=== PATIENT | male | born 1950 | race Caucasian/White ===

== ENCOUNTER → 2023-10-29 13:53 | Outpatient (REF) | payer MEDICARE, OTHER, SELFPAY | LOC: RAD 13:53 | PROVIDERS: ATTENDING PHYSICIAN Surgery Vascular Surgery; FAMILY PHYSICIAN Family Medicine | DX: I73.9 Peripheral vascular disease, unspecified (principal) | CPT/HCPCS: 93922; 93925 ==

== ENCOUNTER → 2023-11-11 07:37 | Outpatient (REF) | payer MEDICARE, OTHER, SELFPAY ==
[2023-11-11 08:35] LABS: % Basophils 0.4 % (0-2); % Eosinophils 3.7 % (0-6); % Immature Granulocytes 0.3 % (0-0.5); % Lymphocytes 30.7 % (20.5-51.1); % Monocytes 7.5 % (1.7-9.3); % Neutrophils 57.4 % (42.2-75.2); Absolute Eosinophils 0.3 10^3/uL (0-0.7); Absolute Lymphocytes 2.3 10^3/uL (1.2-3.4); Absolute Monocytes 0.6 10^3/uL (0.1-0.6); Absolute Neutrophils 4.3 10^3/uL (1.4-6.5); Hematocrit 43.4 % (39.0-52.0); Hemoglobin 14.9 g/dL (13.0-18.0); Mean Corp Hgb Conc. 34.3 g/dL (33.0-37.0); Mean Corpuscular Hgb 31.1 pg (27.0-31.0); Mean Corpuscular Volume 90.6 fL (80.0-94.0); Mean Platelet Volume 10.5 fL (7.4-10.4); Nucleated Red Blood Cells % 0 % (-); Platelet Count 212 10^3/uL (130-400); Red Blood Cell Count 4.79 10^6/uL (4.70-6.10); Red Cell Dist. Width 13.4 % (11.5-14.5); White Blood Cell Count 7.5 10^3/uL (4.8-10.8)
[2023-11-11 08:45] LABS: ALT (SGPT) 61 U/L (0-50); AST (SGOT) 60 U/L (17-59); Albumin 4.6 g/dl (3.5-5.0); Alkaline Phosphatase 54 U/L (38-126); Blood Urea Nitrogen 24 mg/dl (9-20); Calcium 9.5 mg/dl (8.4-10.2); Carbon Dioxide 26 mmol/L (22-30); Chloride 102 mmol/L (98-107); Glucose 113 mg/dl (70-99); HDL Cholesterol 86 mg/dl; LDL Cholesterol, Calculated 45 mg/dl; Potassium 4.7 mmol/L (3.5-5.1); Sodium 137 mmol/L (135-145); Total Bilirubin 0.9 mg/dl (0.2-1.3); Total Cholesterol 146 mg/dl (50-199); Total Protein 7.3 g/dl (6.3-8.2); Triglyceride 75 mg/dl (10-149); Very Low Density Lipoprotein 15 mg/dl (0-30); eGFR > 60.00
[2023-11-11 09:00] LABS: Glycohemoglobin (HgbA1c) 6.6 % (4.0-5.6)
[2023-11-11 09:15] LABS: Microalbumin, Random Urine 1.3 mg/dl (0.6-1.7); Microalbumin/creatinine Ratio 14.5 mg/g
[2023-11-11 09:46] LABS: Vitamin B12 344 pg/ml (239-931)
== END ==
LOC: REG 07:37
PROVIDERS: ATTENDING PHYSICIAN Family Medicine
DX: Z79.4 Long term (current) use of insulin (principal); I10 Essential (primary) hypertension; E78.2 Mixed hyperlipidemia; E53.8 Deficiency of other specified B group vitamins; E11.52 Type 2 diabetes mellitus with diabetic peripheral angiopathy with gangrene
CPT/HCPCS: 36415; 80053; 80061; 82043; 82570; 82607; 83036; 85025

== ENCOUNTER 2024-10-01 22:27 | Inpatient (IN) | payer MEDICARE, OTHER, SELFPAY ==
[2024-10-01] VITALS (9 sets, daily range): BP systolic 88–144; BP diastolic 50–126; BMI 26.1
[2024-10-01] MEDS: NSS 1000 IV ×2 (16:52→19:52)
[2024-10-01 17:00] LABS: % Basophils 0.2 % (0-2); % Immature Granulocytes 0.8 % (0-0.5); % Lymphocytes 4.1 % (20.5-51.1); % Monocytes 10.6 % (1.7-9.3); % Neutrophils 84.3 % (42.2-75.2); Absolute Immature Granulocytes 0.1 10^3/uL (0-0.05); Absolute Lymphocytes 0.7 10^3/uL (1.2-3.4); Absolute Monocytes 1.8 10^3/uL (0.1-0.6); Absolute Neutrophils 14.6 10^3/uL (1.4-6.5); Hematocrit 36.3 % (39.0-52.0); Hemoglobin 13.2 g/dL (13.0-18.0); Mean Corp Hgb Conc. 36.4 g/dL (33.0-37.0); Mean Corpuscular Hgb 31.7 pg (27.0-31.0); Mean Corpuscular Volume 87.1 fL (80.0-94.0); Mean Platelet Volume 10.7 fL (7.4-10.4); Nucleated Red Blood Cells % 0 % (-); Platelet Count 172 10^3/uL (130-400); Red Blood Cell Count 4.17 10^6/uL (4.70-6.10); Red Cell Dist. Width 12.5 % (11.5-14.5); White Blood Cell Count 17.3 10^3/uL (4.8-10.8)
[2024-10-01 17:13] LABS: Lactic Acid 1.6 mmol/L (0.7-2.0)
[2024-10-01 17:14] LABS: ALT (SGPT) 50 U/L (0-50); AST (SGOT) 65 U/L (17-59); Albumin 4.1 g/dl (3.5-5.0); Alkaline Phosphatase 84 U/L (38-126); Blood Urea Nitrogen 34 mg/dl (9-20); Calcium 9.3 mg/dl (8.4-10.2); Carbon Dioxide 22 mmol/L (22-30); Chloride 96 mmol/L (98-107); Glucose 203 mg/dl (70-99); Potassium 3.8 mmol/L (3.5-5.1); Sodium 131 mmol/L (135-145); Total Bilirubin 0.8 mg/dl (0.2-1.3); Total Protein 6.6 g/dl (6.3-8.2); eGFR 36.33
--- NOTE | 2024-10-01 17:17 | EDRN ---
Dr. Riddle in room w/ pt at this time.
--- NOTE | 2024-10-01 17:35 | EDRN ---
Pt was sent to ER to be evaluated for weakness, chills, and diarrhea today. BS was very high but unsure how high r/t battery . low 200's BS tien 16:00. Dr. Manzanares sent pt here to be seen. Pt has pressure sore on sole of L foot at base of great
and toe #2, dry and healing. Pt saw auto bumper straightener prior to returning from [place].
--- NOTE | 2024-10-01 18:02 | EDRN ---
Pt's spouse and now pt have asked about 3 times about eating they say. Dr. Riddle was TT'd about pt's request to eat and drink at this time.
--- NOTE | 2024-10-01 18:11 | EDRN ---
Dr. Riddle responded to TT that it is ok for pt to drink and eat and pt received a boxed lunch w/ small cup of water as well at this time.
[2024-10-01 18:14] LABS: COVID-19 Antigen Negative (Negative)
--- NOTE | 2024-10-01 19:55 | EDRN ---
Pt has not vomited since in [facility] ED room #14 and has not voided or had a BM. Pt is more awake and alert per spouse. optical technician notified pt is to be admitted as per pt.
--- NOTE | 2024-10-01 19:58 | EDRN ---
Pt states she arrives for L flank pain as bad as it was pre-stent placement w/ vomiting and explosive diarrhea prior to arrival. Pt had 102 fever last night and states she also had burning on urination w/ frequency and urgency. Pain in L flank
reported as 9/10. Pt states she was seen by urologist on Friday and place on , unknown if has gotten any due to N/V. Pt last took advil for pain at tien 11:00 am though feels she vomited it up.
--- NOTE | 2024-10-01 19:59 | ED.GENMED ---
History of Present Illness
General
Chief Complaint: Abdominal Symptoms
Source: patient and spouse
Exam Limitations: none
Time Seen by Provider: 10/01/24 17:16
History of Present Illness
History of Present Illness:
Patient had some shaking chills 2 weeks ago. Then the other day and again today. Associated with some confusion and general weakness. Also some diarrhea. No abdominal pain cough congestion or fever
Past History
Past History
ED Past Medical History: HTN, Hypercholesterolemia and NIDDM
ED Past Surgical History: Cardiac (Aortic valve replacement) and Tonsilectomy
Review of Systems
Review of Systems
All Other Systems: Not applicable
Constitutional: Reports chills; Denies weight loss or night sweats
Respiratory: Reports no symptoms
Cardiac: Reports no symptoms
Phy Exam
Physical Exam
Physical Exam:
GENERAL: Alert and oriented in no apparent distress
EYE: Orbits normal.
NECK: Supple, no significant adenopathy.
ENT: Pharynx without erythema
CARDIAC: Regular rate and rhythm without any obvious murmurs.
LUNGS: Clear breath sounds,normal
ABDOMEN: Soft, without focal tenderness or distention
NEUROLOGICAL: Alert and oriented , grossly non-focal
SKIN: Warm and dry, no rash or lesion, no discoloration, skin intact.
MUSCULOSKELETAL: No edema,no deformity.Good color
PSYCH: Normal and appropriate interaction.
Course
Orders/Labs/Results
Orders:
Orders
10/01/24 16:45
IV Insert/Care/Rem.- Treatment PRN
10/01/24 16:47
Complete Blood Count/With Diff Urgent
Comprehensive Metabolic Panel Urgent
Lactic Acid Q4H
Comment: ON ICE, CANCEL 2ND ORDER IF FIRST LACTIC ACID LEVEL <2
Blood Culture Q20M
DEVAN Source: Blood/Venous
Specimen Description:
Comment: Urgent from separate sites. If patient screens positive for possible sepsis
10/01/24 16:52
0.9% Sodium Chloride 1000 ml [Nss] 1,000 ml IV BOLUS
10/01/24 17:27
STOOL [C difficile Antigen & Toxins] Urgent
DEVAN Source: Feces/Stool
Specimen Description:
Date Specimen was Collected: 10/03/24
Time Specimen was Collected: 10:35
Stool Culture Urgent
DEVAN Source: Feces/Stool
Specimen Description:
Date Specimen was Collected: 10/03/24
Time Specimen was Collected: 10:35
CXR2 [CR Chest - 2 Views ] Urgent
Comment:
Reason For Exam: Rigors/chills
10/01/24 17:48
COVID-19 Antigen Urgent
Source: Nasal Swab
Blood Culture Q20M
DEVAN Source: Blood/Venous
Specimen Description:
Comment: Urgent from separate sites. If patient screens positive for possible sepsis
Influenza A+B Rapid Molecular Urgent
DEVAN Source: Nasal Swab
Specimen Description:
10/01/24 19:45
0.9% Sodium Chloride 1000 ml [Nss] 1,000 ml IV BOLUS
10/01/24 20:22
Aztreonam [Azactam] 2,000 mg IV NOW STA
10/01/24 20:42
Vancomycin [Vancocin] 2,000 mg 0.9% Sodium Chloride 500 ml [Nss] 500 ml IV NOW
10/01/24 21:05
Urinalysis Reflex To Culture Urgent
Date Specimen was Collected: 10/01/24
Time Specimen was Collected: 20:57
Urine Microscopic Reflex Cult Urgent
10/01/24 21:54
Admit/Transfer Patient As Directed
Co-Sign Provider:
Level of Care: Inpatient admission
Assign to:: Medical/Surgical
Physician / Group: Chin
Diagnosis: AMRIK, Leukocytosis, N/V/D
Reason for Hospitalization: AMRIK, Leukocytosis, N/V/D
Expected length of stay greater than two midnights?: Yes
ELOS- Estimated Length of Stay in days: 3
I certify the patient meets the requirements for IP care: Yes
PRN Pain Medication Management As Directed
May give lesser potent ordered pain med per pt: Yes
preference::
Protocol:: Medication orders for pain may be administered in a
manner that supports deferring to patient preference
when the pt is:
- Requesting an ordered lesser potent pain medication.
Least to most potent pain medications are defined
as: acetaminophen < NSAID < tramadol < opioids
(morphine, oxycodone, hydromorphone).
- Requesting a lesser dose of the same medication IF
ORDERED.
- Requesting a less intrusive route of administration
if both routes are prescribed by the provider (PO <
IV).
10/01/24 22:06
Code Status As Directed
Resuscitation Status: Full Code
10/01/24 23:38
Acetaminophen [Tylenol] 650 mg PO Q4HPRN PRN
10/02/24 00:20
0.9% Sodium Chloride 1000 ml [Nss] 1,000 ml IV 100 mls/hr
Aspirin Low Dose EC [Aspir Low (Enteric Coated)] 81 mg PO HS
Dextrose 50%-Water [Dextrose 50% Syringe] 12.5 grams IV [id number] PRN
Glucagon [GlucaGen] 1 mg IM PRN PRN
Heparin 5,000 units SC Q8
Ondansetron Injectable [Zofran] 4 mg IV Q6HPRN PRN
insulin glargine [Lantus Solostar U-100 Insulin] 20 units SC HS
10/02/24 00:20
Activity As Directed
Activity Level: Ambulate
With Assistance
Bedside Glucose Monitoring As Directed
Frequency: AC&HS
Additional Instructions:: Change to q6h if pt on TPN, tube feeding or not eating
Bladder Scan As Directed
Follow Bladder Retention/Intermittent Cath Algorithm?: Yes
PRN if no void in __ hours: 6
Frequency: Per Retention Algorithm
If Bladder Scan Result >: 400
then:: Straight cath
I/O [Intake/ Output] As Directed
Frequency: Per unit guidelines
Straight Cath As Directed
Frequency: Per Retention Algorithm
Additional Instructions: straight cath as needed per acute urinary retention algorithm for 24 hrs
Additional Instructions: for bladder scan greater than 400 mL
Vital Signs As Directed
Frequency: Per unit guidelines
Oxygen Therapy [O2 Therapy] [RESP] Routine
Titrate/Wean O2 to maintain O2 sat greater than (%): 94
PT Consult [Pt Eval And Treat] Routine
Activity Level: Ambulate
With Assistance
DX Deep Vein Thrombosis Video Routine
10/02/24 00:30
Nebivolol HCl [Bystolic] 10 mg PO HS
10/02/24 Breakfast
BRAT
At Your Request: Full Participation
10/02/24 06:23
Complete Blood Count/No Diff IN AM
Glycohemoglobin (HgbA1c) IN AM
10/02/24 07:30
Insulin Aspart Corrective Mod [Novolog Flexpen-Moderate Resistance] See Protocol SC AC
10/04/24 08:00
Atorvastatin [Lipitor] 20 mg PO MOWEFR
Abnormal Lab Results
10/01/24 10/01/24
16:47 21:05
WBC 17.3 H 10^3/uL
(4.8-10.8)
RBC 4.17 L 10^6/uL
(4.70-6.10)
Hct 36.3 L %
(39.0-52.0)
MCH 31.7 H pg
(27.0-31.0)
MPV 10.7 H fL
(7.4-10.4)
Abs Immat Gran (auto) 0.1 H 10^3/uL
(0-0.05)
Absolute Neuts (auto) 14.6 H 10^3/uL
(1.4-6.5)
Absolute Lymphs (auto) 0.7 L 10^3/uL
(1.2-3.4)
Absolute Monos (auto) 1.8 H 10^3/uL
(0.1-0.6)
Immature Gran % 0.8 H %
(0-0.5)
Neutrophils % 84.3 H %
(42.2-75.2)
Lymphocytes % 4.1 L %
(20.5-51.1)
Monocytes % 10.6 H %
(1.7-9.3)
Sodium 131 L mmol/L
(135-145)
Chloride 96 L mmol/L
(98-107)
BUN 34 H mg/dl
(9-20)
Creatinine 1.9 H mg/dL
(0.7-1.3)
Glucose 203 H mg/dl
(70-99)
AST 65 H U/L
(17-59)
Urine Ketones 1+ A
(Negative)
Urine Bacteria (Reflex) Few A
(Negative)
Urine Glucose 4+ A
(Negative)
Urine Albumin (Reflex) 1+ A
(Neg - Trace)
10/01/24 16:47
10/01/24 16:47
Vital Signs
Initial and Last Documented VS:
Initial Vital Signs
Temp Resp Pulse Ox
99.0 F 16 97
10/01/24 16:30 10/01/24 16:30 10/01/24 16:30
Last Documented Vital Signs
Temp Pulse Resp BP Pulse Ox
99.5 F 73 18 143/79 97
10/04/24 07:45 10/04/24 07:45 10/04/24 07:45 10/04/24 07:45 10/04/24 07:45
MDM/Problems Addressed
Differential Diagnosis Includes:
Patient describing shaking rigors intermittently. Always a concern for bacteremia. However clinically not toxic at this time. With leukocytosis renal insufficiency and symptoms patient warrants inpatient evaluation and workup
*Radiology
Radiology exam reviewed: preliminary read by ED provider (Negative) and radiology read reviewed (Negative)
*Pulse Oximetry
Patient hypoxic: no
*Critical Care Note
Total Time (30-74mins, 75-104mins- exclusive of procedures): Not Applicable
Data Reviewed
Review of Other/Old Records Reveals: Labs, Records and Testing
ED Attending Note
-
Portions of this chart may have been created with voice recognition software.� Occasional wrong word or��sound alike� substitutions may have occurred due to the inherent limitations of voice recognition software.
Discharge Plan
Departure
Patient Disposition: Admit
Date of Disposition: 10/01/24
Time of Disposition: 19:59
Presentation/result/management discussed w/ accepting MD/DO: Hospitalist
Discharge Problem:
Dehydration/renal insufficiency, Rigors/leukocytosis dehydration/renal in
Interventions
Interventions:
*General Assessment Last Done: 10/01/24 17:34
*Neglect/Abuse Screening Last Done: 10/01/24 17:35
*ED- Fall Risk Assessment Last Done: 10/01/24 17:34
*Nursing Disposition Last Done: 10/02/24 00:10
CW-Jczvnx-Zgwkehhuiv Assessment Last Done: 10/01/24 18:11
Discharge Date and Time
Discharge Date/Time: 10/02/24 00:10
--- NOTE | 2024-10-01 20:39 | EDRN ---
Pharmacy called to mix and send vancocin 2000 mg at this time.
[2024-10-01] MEDS: AZACTAM 2000 MG IV (20:47)
[2024-10-01 21:14] LABS: Urine Albumin 1+ (Neg - Trace); Urine Bilirubin Negative (Negative); Urine Character Clear (Clear); Urine Color Yellow; Urine Glucose 4+ (Negative); Urine Ketone 1+ (Negative); Urine Leukocyte Negative (Negative); Urine Nitrite Negative (Negative); Urine Occult Blood Negative (Negative); Urine Urobilinogen Negative (Neg - 1+)
[2024-10-01 21:21] LABS: Urine Squamous Cell 0-2 /LPF (Few)
[2024-10-01 21:23] LABS: Urine Bacteria Few (Negative); Urine Red Blood Cell 0-2 /HPF (0-2)
[2024-10-01] MEDS: VANCOCIN 540 MG IV (21:28)
--- NOTE | 2024-10-01 22:08 | HPS.HSE ---
Family Physician
-
Family Physician: Gabe Hanley
Chief Complaint
-
Chills, N/V/D
History of Present Illness
Patient is a 74y M with PMH significant for PAD, DM-II and hypertension who presents to ED complaining of shaking chills and N/V/D. Patient states that his symptoms started about 2 weeks ago. He was visiting family in [place] and developed
shaking chills and nausea. He thought that he may have eaten something bad - though he is not aware of anything specific. He reports no known sick contacts. Patient had no chills following that initial evening; however, he notes that he has had
poor appetite and generally not been feeling well since that time. He has chronic ambulatory dysfunction and states that he has been more weak than usual.
Friday night / Friday AM patient developed recurrent chills and N/V/D. He reports some upper abdominal discomfort that has since resolved.
He had a single, watery, brown stool earlier today.
No urinary complaints. No cough / SOB. No other focal symptoms.
At the time of my examination patient is resting comfortably and has no specific complaints. He has no current abdominal pain, nausea, etc.
Medical History
Past Medical History
Past Medical History: Reports Other
Additional Past Medical History:
Aortic Stenosis
Hypertension
DM-II with Neuropathy and Retinopathy
ASCVD / PAD
Ambulatory Dysfunction
Past Surgical History: Reports Other
Additional Past Surgical History:
PTCA
T&A
Bovine AVR
Left 1st Toe Amputation
LLE Arteriogram
Social History
Tobacco: Non-smoker
Alcohol: Occasional
Drug: None
Family History
Family History: Not pertinent
Allergies / Home Medications
Allergies reflects when Allergies were last updated in [facility].
Home Medications with original date entered in [facility]
Allergy/Medication List:
Allergies
Allergy/AdvReac Type Severity Reaction Status Date / Time
Penicillins Allergy mild rash Verified 06/27/21 09:51
from zoysn
06/23/21,Tolerated
in
past,kathleen
cephalosp
simvastatin Allergy myalgias Verified 06/26/21 16:23
Home Medications
amlodipine 5 mg tablet 5 mg PO DAILY Blood pressure 11/24/19
aspirin 81 mg tablet,delayed release 81 mg PO HS Blood clot prevention/tx 11/24/19
gabapentin 600 mg tablet 600 mg PO TID Neurological Condition 11/24/19
atorvastatin 20 mg tablet 20 mg PO MOWEFR High cholesterol 01/15/21
nebivolol 10 mg tablet 10 mg PO HS Blood pressure 01/15/21
insulin glargine 100 unit/mL (3 mL) subcutaneous pen (Lantus Solostar U-100 Insulin) 22 units SC HS ##1 06/28/21
chlorthalidone 25 mg tablet 25 mg PO DAILY 10/01/24
cyclobenzaprine 10 mg tablet 10 mg PO DAILYPRN PRN muscle spasms 10/01/24
dapagliflozin propanediol 10 mg tablet (Farxiga) 10 mg PO MOWEFR 10/01/24
ezetimibe 10 mg tablet 10 mg PO HS 10/01/24
insulin aspart U-100 100 unit/mL (3 mL) subcutaneous pen (Novolog FlexPen U-100 Insulin aspart) 8 units SC AC 10/01/24
lisinopril 40 mg tablet 40 mg PO DAILY 10/01/24
semaglutide 0.25 mg or 0.5 mg (2 mg/3 mL) subcutaneous pen injector (Ozempic) 0.25 mg SC BELLO 10/01/24
therapeutic multivitamin 1 tab PO DAILY 10/01/24
vitamin B complex 1 tab PO DAILY 10/01/24
Review of Systems
-
History Source: Patient
A 12 point ROS was completed and negative except as noted: Yes
Constitutional: Reports Fatigue and Chills; Denies Fever
EENT: Denies Sore Throat
Respiratory: Denies Cough or Trouble Breathing
Cardiac: Denies Chest Pain or Palpitations
Abdomen/GI: Reports Abdominal Pain, Nausea, Vomiting, Diarrhea and Anorexia; Denies Bloody Stools or Black Stools
: Denies Dysuria, Frequency or Flank Pain
Musculoskeletal: Denies Joint Pain or Edema
Neurological: Reports Weakness; Denies Dizzy or Headache
Psych: Denies Depression or Anxiety
Physical Exam
Vital Signs
Vital Signs
Temp Pulse Resp BP Pulse Ox
99.0 F 74 18 100/76 97
10/01/24 16:30 10/01/24 22:00 10/01/24 22:00 10/01/24 22:00 10/01/24 21:30
Physical Exam
General: Other (74y M in no distress.)
HEENT: Moist mucous membranes and PERRLA
Respiratory: Clear; No Wheezes, Rales or Rhonchi
Cardiac: S1/S2 and Regular Rhythm; No Murmur
GI: Soft, Non Tender, Non Distended and Normal Bowel Sounds
Musculoskeletal: No Clubbing, No Cyanosis, No Edema and Other (Chronic venous stasis dermatitis / skin changes.)
Neuro: AO x 3
Laboratory Results
-
10/01/24 16:47
10/01/24 16:47
Laboratory Results
Lactic Acid Cancelled 10/01/24 20:45
Total Bilirubin 0.8 mg/dl (0.2-1.3) 10/01/24 16:47
AST 65 U/L (17-59) H 10/01/24 16:47
ALT 50 U/L (0-50) 10/01/24 16:47
Alkaline Phosphatase 84 U/L (38-126) 10/01/24 16:47
Impression/Plan
-
A/P: Patient is a 74y M with PMH significant for ASCVD, s/p AVR and DM-II who presents to ED complaining of chills and N/V/D off-and-on for two weeks.
Gastroenteritis
Leukocytosis
Rigors
- Admit for further evaluation and treatment.
- Check abdominal US given N/V and upper abdominal discomfort.
- Follow-up results of stool studies.
- Observe off of further abx for now pending identification of infectious source.
- Follow temperature curve. Monitor for any new / recurrent symptoms.
- Patient has leukocytosis but no other indicators of sepsis / SIRS.
AMRIK
- SCr = 1.9 compared to baseline of 1.2.
- ? due to volume losses - though patient reports single episode of emesis and single episode of loose / watery stool.
- IVF support overnight and follow for improvement.
- Hold lisinopril acutely.
DM-II
- Stable. Continue basal : bolus insulin regimen.
- Hold Farxiga / Ozempic acutely.
- SSI coverage as needed.
- Update A1C.
Benign Hypertension
- BP is borderline / low in the ED.
- Hold antihypertensive medications acutely.
- Resume as needed as BP improves.
ASCVD / PAD
- Continue CV med regimen including ASA, statin, etc.
Chronic Ambulatory Dysfunction
- PT eval.
DVT Prophylaxis: Subcut Heparin
Code Status: Full
[2024-10-01] MEDS: TYLENOL 650 MG PO (23:42)
[2024-10-01] MEDS: FLUSH (NSS) 1 FLUSH IV (23:43)
[2024-10-02] VITALS: BP 140/94
[2024-10-02] MEDS: HEPARIN 5000 UNITS SC ×3 (00:34→15:06)
[2024-10-02] MEDS: NSS 1000 IV ×4 (00:34→22:49)
[2024-10-02] MEDS: ASPIR LOW (ENTERIC COATED) PO ×2 (00:35→01:30)
[2024-10-02 00:38] LABS: Glucose - Point of Care 227 mg/dl (70-99)
[2024-10-02 00:44] VITALS: BP 128/77; BMI 25.5
[2024-10-02] MEDS: ZOFRAN 4 MG IV (00:54)
[2024-10-02] MEDS: LANTUS 0.2 UNITS SC ×2 (00:54→21:49)
[2024-10-02] MEDS: BYSTOLIC PO (01:10)
--- NOTE | 2024-10-02 01:30 | PTCARENOTE ---
Received pt from ED at 00:30. Pt able to stand and pivot from stretcher to bed. Pt shaking, states that he feels cold. Temp 99.2F. Pt vomited and unable to take PO meds at this time. PRN zofran given. Nebivolol held per Dr. Neely's note and House
Provider, Juliet Ham, due to hypotension in the ED.
[2024-10-02 07:38] LABS: Hematocrit 32.2 % (39.0-52.0); Hemoglobin 11.7 g/dL (13.0-18.0); Mean Corp Hgb Conc. 36.3 g/dL (33.0-37.0); Mean Corpuscular Hgb 32.2 pg (27.0-31.0); Mean Corpuscular Volume 88.7 fL (80.0-94.0); Mean Platelet Volume 11.2 fL (7.4-10.4); Platelet Count 139 10^3/uL (130-400); Red Blood Cell Count 3.63 10^6/uL (4.70-6.10); Red Cell Dist. Width 12.7 % (11.5-14.5); White Blood Cell Count 12.4 10^3/uL (4.8-10.8)
[2024-10-02 07:55] VITALS: BP 95/56
--- NOTE | 2024-10-02 07:58 | W.PN.HOSP.TC ---
Today's Communication/Plan
-
See PN
Assessment / Plan
Assessment / Plan
74yo M with PMHx of DM, HLD, HTN, PAD, neuropathy sent by his doctor due to ill appearing look due to 1 week of chills and few weekls of nausea, vomiting and diarrhea. Managed for possible RML pneumonia
A/P:
#RML CAP
legionella and S.pneumonia urinary Ag
Sputum Cx
Ceftriaxone/Doxy
CT chest due to vague findings on XR
#Chils, nausea, vomiting, diarrhea
r/o c.diff
CT abd/pelvis
Zofran as needed
UA neg for UTI
check Bcx
check blood parasite and Lyme
No metrabolic acidosis on labs
#minimally elevated AST
check CPK
Hepatitis panel
CT abd
#AMRIK with mild hyponatremia
Cr baseline 0.9
possibly dehydration with nausea, vomiting and diarrhea on diuretics
hold diuretics ACEi ARB, avoid NSAIDs
hydrate
follow Cr
#DM type 2 with neuropathy
cont basal insulin reduced dose
Hold bolus until oral intake improving
Accuchecks, Insulin SS, DM diet
decrease Gabapentin
#Essential HTN
hold chlorthalidone and Faxiga
#HLD
#PAD
cont meds
DVT ppx hep
Full code
I have spent at least 58min reviewing chart, test results and providing direct patient care
Anticipated Discharge: > 48 hours
Subjective/Interval History
-
Date of Service: October 02, 2024
Objective Data
-
Labs:
Laboratory Results
10/02/24
06:23
WBC 12.4 H
Hgb 11.7 L
Hct 32.2 L
Plt Count 139
Sodium Pending
Potassium Pending
Chloride Pending
Carbon Dioxide Pending
BUN Pending
Creatinine Pending
Glucose Pending
Calcium Pending
Total Bilirubin Pending
AST Pending
ALT Pending
Alkaline Phosphatase Pending
Vital Signs:
Vital Signs
Temp Pulse Resp BP Pulse Ox
99.2 F 99 19 128/77 98
10/02/24 00:44 10/02/24 00:44 10/02/24 00:44 10/02/24 00:44 10/02/24 00:44
I&O
10/01/24 10/02/24 10/03/24
06:59 06:59 06:59
Intake Total 480 / 480
Output Total 600 / 600
Balance -120 / -120
Review of Systems
-
History Source: Patient
All other systems: Reviewed and negative
Constitutional: Reports Chills
Physical Exam
-
General: No Apparent Distress
HEENT: Normocephalic
Respiratory: Decreased Breath Sounds (R)
Cardiac: Regular Rhythm
GI: Soft, Nontender and Nondistended
Musculoskeletal: No Clubbing, No Cyanosis and No Edema
Skin: Warm
Neuro: Awake, Alert, Oriented and AO x 3
Psych: Calm
[2024-10-02 08:13] LABS: Glucose - Point of Care 185 mg/dl (70-99)
[2024-10-02 08:17] LABS: Procalcitonin 24.71 ng/ml (0.0-0.25)
[2024-10-02] MEDS: STERILE WATER FOR INJECTION 10 ML IV ×3 (08:27→21:41)
[2024-10-02] MEDS: ROCEPHIN 1000 MG IV (08:27)
[2024-10-02] MEDS: NOVOLOG FLEXPEN-MODERATE RESISTANCE 1 UNITS SC (08:27)
[2024-10-02] MEDS: VIBRAMYCIN 100 MG PO (08:28)
[2024-10-02 08:30] LABS: ALT (SGPT) 39 U/L (0-50); AST (SGOT) 38 U/L (17-59); Alkaline Phosphatase 67 U/L (38-126); Blood Urea Nitrogen 33 mg/dl (9-20); Calcium 7.9 mg/dl (8.4-10.2); Carbon Dioxide 22 mmol/L (22-30); Chloride 103 mmol/L (98-107); Direct Bilirubin 0.3 mg/dl (0.0-0.4); Estimated Creatinine Clearance 48 ml/min; Glucose 150 mg/dl (70-99); Potassium 3.4 mmol/L (3.5-5.1); Sodium 134 mmol/L (135-145); Total Bilirubin 0.7 mg/dl (0.2-1.3); Total Protein 5.3 g/dl (6.3-8.2); eGFR 44.65
--- NOTE | 2024-10-02 08:55 | PHA.VAN.IN ---
Assessment
- Assessment
Renal Function: Appears elevated from baseline
Concomitant Antimicrobials: doxycycline
Plan
- Plan
Initial / Loading Dose: 2000mg 10/01
Maintenance Regimen: prn by level
Monitorin/20 in am
Pharmacokinetics Vancomycin I
- -
Patient Age: 74
Patient Sex: Male
Vancomycin Day #: 1
Indication: Bacteremia
Requesting Provider: Dr. Gautam
Pertinent Antimicrobial Allergies:
pcns=mild rash from zosyn
Height / Weight:
Height 6 ft 3 in
Actual Weight 92.397 kg
IBW in k.5
- Vital Signs / Lab Results
Temp Pulse Resp BP Pulse Ox
99.5 F 77 18 95/56 98
10/02/24 07:55 10/02/24 07:55 10/02/24 07:55 10/02/24 07:55 10/02/24 07:55
Lab Results - Hematology
10/01/24 10/02/24
16:47 06:23
WBC 17.3 H 12.4 H
Lab Results - Chemistry
10/01/24 10/02/24
16:47 06:23
BUN 34 H 33 H
Creatinine 1.9 H 1.6 H
Estimated Creat Clear 48
Albumin 4.1 3.0 L
10/01/24 10/01/24
16:47 20:45
Lactic Acid 1.6 Cancelled
Lab Results - Urine
10/01/24
21:05
Urine Nitrite (Reflex) Negative
Leukocyte Esterase Rfl Negative
Urine WBC (Reflex) 3-5
Ur Squamous Epith Cells 0-2
Urine Bacteria (Reflex) Few A
Microbiology Results
10/01/24 16:47 Blood Culture - Preliminary
Blood/Venous Positive culture in progress
Gram Stain - Preliminary
10/01/24 17:48 Blood Culture - Preliminary
Blood/Venous Positive culture in progress
Gram Stain - Preliminary
10/01/24 17:48 Influenza Types A & B (MARIA M) - Final
Nasal Swab Negative for Influenza A & B, NAAT
Negative results must be combined with clinical observations
and patient history.
Nucleic Acid Amplification test (NAAT)performed on the
[employer] NET platform.
[2024-10-02 08:57] LABS: Creatine Phosphokinase 239 U/L (55-170)
[2024-10-02 09:04] LABS: Magnesium 1.8 mg/dl (1.6-2.3)
[2024-10-02 09:25] LABS: TSH Reflex To Free T4 0.51 uIU/ml (0.47-4.68)
[2024-10-02 09:58] LABS: Glycohemoglobin (HgbA1c) 6.4 % (4.0-5.6)
[2024-10-02] MEDS: KCL 40 MEQ PO (10:21)
[2024-10-02] MEDS: MAXIPIME 2000 MG IV ×2 (10:21→21:41)
[2024-10-02] MEDS: NEURONTIN 300 MG PO ×3 (10:21→21:41)
--- NOTE | 2024-10-02 11:10 | CON.ID ---
Consultation
-
Date/Time Consultation Requested: 10/02/2024 0849
Date/Time Consultation Performed: 10/02/2024 1048
Requesting Provider: Lotus
Performing Provider: Ted
Reason for Consultation: Bacteremia
Chief Complaint / Past History
History of Present Illness
Nav Courtney is a 74-year-old man being evaluated the request of Dr. Gautam in regards to bacteremia. History is obtained from chart review, along with patient interview. Additional history was obtained from the patient's who is at the
bedside.
The patient has a significant past medical history of aortic valvulopathy, and underwent aortic valve replacement (2019; [facility]; bovine)
He reports he was in his usual state of health until approximate 2 weeks ago when he was visiting family in [place]. At that time he recalls the development of shaking chills and some nausea after he ate dinner 1 evening. This seemed to be
self-limited, and he thereafter flew to [place] where he resides, but over the past week has driven back to the local area. Earlier this week he again developed chills, nausea and vomiting, along with abdominal discomfort. Ultimately, he was seen
by his PCP and sent on to the emergency room for further evaluation.
Workup here has revealed leukocytosis. Blood cultures obtained at admission are positive for gram-positive cocci in 4 of 4 bottles. Infectious Diseases is asked to comment on further antibiotic management.
Past History
Additional Past Medical History:
HTN
DM with neuropathy/retinopathy
HLD
PAD
Valvulopathy (aortic stenosis)
Ambulatory dysfunction
Additional Past Surgical History:
AVR (2019; [facility]; bovine)
Tonsillectomy
PTCA
Left toe amputation (2021)
Allergy History:
Penicillins Allergy (Verified 06/27/21 09:51)
mild rash from zoysn 06/23/21,Tolerated in past,kathleen cephalosp
simvastatin Allergy (Verified 06/26/21 16:23)
myalgias
Medications Reviewed: Yes
Current Antibiotics:
Vancomycin (dosing per pharmacy
Cefepime 2 g IV every 12 hours
Doxycycline
Social History
Tobacco: Non-Smoker
Alcohol: Occasional
Drug: None
Personal:
Living: With Family
Employment: Retired
Family History
Family History: Not Pertinent
Review of Systems
Vital Signs
Temp Pulse Resp BP Pulse Ox
99.5 F 77 18 95/56 98
10/02/24 07:55 10/02/24 07:55 10/02/24 07:55 10/02/24 07:55 10/02/24 07:55
Physical Exam
Physical Exam
Constitutional: No Acute Distress, Comfortable and Non-toxic
Eyes: Pupils Equal, Pupils Round, No Conjunctival Hemorrhage and Sclera Anicteric
Oral: No Thrush and No Ulcers
Cardiovascular: Regular Rate, S1/S2 and Murmur (I/); Negative S3/S4
Pulmonary: Clear; Negative Wheezes
Gastrointestinal: Soft, Non Tender and Non Distended
Genito-Urinary: Negative Frank, Suprapubic Tenderness or CVA Tenderness
Extremities: Venous Insufficiency (B/L LE's); Negative Edema or Cyanosis
Musculoskeletal: Joint Swelling and Joint Effusion
Neurological: Awake and Alert
Psychological: Calm
Lab / Diagnostic Study Results
10/02/24 06:23
10/02/24 06:23
Abs Immat Gran (auto) 0.1 10^3/uL (0-0.05) H 10/01/24 16:47
Absolute Neuts (auto) 14.6 10^3/uL (1.4-6.5) H 10/01/24 16:47
Absolute Lymphs (auto) 0.7 10^3/uL (1.2-3.4) L 10/01/24 16:47
Absolute Monos (auto) 1.8 10^3/uL (0.1-0.6) H 10/01/24 16:47
Absolute Basos (auto) 0.0 10^3/uL (0-0.2) 10/01/24 16:47
Immature Gran % 0.8 % (0-0.5) H 10/01/24 16:47
Neutrophils % 84.3 % (42.2-75.2) H 10/01/24 16:47
Lymphocytes % 4.1 % (20.5-51.1) L 10/01/24 16:47
Monocytes % 10.6 % (1.7-9.3) H 10/01/24 16:47
Eosinophils % 0.0 % (0-6) 10/01/24 16:47
Basophils % 0.2 % (0-2) 10/01/24 16:47
Lactic Acid Cancelled 10/01/24 20:45
Procalcitonin 24.71 ng/ml (0.0-0.25) H* 10/02/24 07:15
Ur Squamous Epith Cells 0-2 /LPF (Few) 10/01/24 21:05
Microbiology Results
Micro:
10/02/24 10:05 Legionella Urinary Antigen - Final
Urine Negative for Legionella pneumophila Serogroup 1 antigen.
Streptococcus pneumoniae Antigen (M - Final
Negative for Streptococcus pneumoniae antigen.
10/01/24 16:47 Blood Culture - Preliminary
Blood/Venous Positive culture in progress
Gram Stain - GPCs 2 of 2 bottles
10/01/24 17:48 Blood Culture - Preliminary
Blood/Venous Positive culture in progress
Gram Stain - GPCs 2 of 2 bottles
10/02/24 07:21 Blood Parasites Smear - Pending
Blood/Venous
10/02/24 01:18 MRSA Screen - Pending
Nose
10/01/24 17:48 Influenza Types A & B (MARIA M) - Final
Nasal Swab Negative for Influenza A & B, NAAT
Negative results must be combined with clinical observations
and patient history.
Nucleic Acid Amplification test (NAAT)performed on the
[employer] platform.
Imaging:
10/02/24 CT chest/abdomen/pelvis without contrast: Mild subsegmental atelectasis in bilateral lung bases. No focal consolidation. Multiple noncalcified gallstones are noted in the gallbladder lumen. No appreciable gallbladder wall thickening or
pericholecystic fluid. Bilateral kidneys are within normal limits. No hydronephrosis or nephrolithiasis noted. No bowel wall thickening, obstruction or inflammation noted. Urinary bladder is unremarkable. Please see full dictation for
additional detail..
Assessment / Plan
Bacteremia with gram-positive cocci (high-grade)
Leukocytosis
Fever/chills
Diarrhea
Hx AVR (2020; [facility]; bovine)
HTN
DM with neuropathy/retinopathy
HLD
PAD
Valvulopathy (aortic stenosis)
Ambulatory dysfunction
Recommendations:
Continue empiric vancomycin and cefepime.
Discontinue further doxycycline.
Repeat blood cultures x 2.
Await further ID and susceptibility data from current positive blood cultures.
Check echocardiogram (TTE)
Further recommendations as additional data is returned.
[2024-10-02 11:30] VITALS: BP 100/61
[2024-10-02 11:52] LABS: Glucose - Point of Care 201 mg/dl (70-99)
[2024-10-02] MEDS: NOVOLOG FLEXPEN-MODERATE RESISTANCE 3 UNITS SC ×2 (11:54→17:20)
[2024-10-02] MEDS: TYLENOL 650 MG PO (11:55)
--- NOTE | 2024-10-02 12:35 | PTCARENOTE ---
MD notified of critical procal level and positive blood cx in progress. Patient AAOX3, flushed, diaphoretic this AM, denies nausea/abdominal pain at this time, diet advanced to low res per MD. BP this AM 95/56 taken by MD luann aware, fluid bolus
ordered and administered by this RN - see AUG. BP 100/61 HR 82 for 1100 vitals, oral temp of 100.4F, medicated with PRN tylenol. Repeat blood cx ordered per ID. Patient assistx1 RW stand and pivot to stretcher for CT scan, states generalized
weakness. K 3.4 on AM labs, repleted with oral K per MD. Urine sample sent per MD order, outstanding stool and sputum samples noted, patient aware of both needed. Patient and at bedside updated on plan of care.
--- NOTE | 2024-10-02 13:21 | CM ---
Reviewed the chart notes and spoke with the patient and his spouse at the bedside. The patient resides with his spouse in a two story home with one step to enter. The patient reports no DME or SNF in the past, but did have VN in past. Agency
unknown. The patient confirmed his pharmacy of choice is the [facility]. CM continues to be available to patient/family and is monitoring medical plan for needs at discharge.
Plan: Discharge to home when medically stable. No anticipated needs identified at this time.
[2024-10-02 15:20] VITALS: BP 109/54
[2024-10-02 17:16] LABS: Glucose - Point of Care 235 mg/dl (70-99)
[2024-10-02] MEDS: BYSTOLIC 10 MG PO (21:41)
[2024-10-02] MEDS: ZETIA 10 MG PO (21:41)
[2024-10-02] MEDS: ASPIR LOW (ENTERIC COATED) 81 MG PO (21:41)
[2024-10-02 21:52] LABS: Glucose - Point of Care 231 mg/dl (70-99)
[2024-10-02] MEDS: HEPARIN SC (23:21)
[2024-10-02 23:31] VITALS: BP 128/70
[2024-10-03 07:50] VITALS: BP 124/65
[2024-10-03 07:55] LABS: Vancomycin Random 6.6 ug/ml
[2024-10-03 08:03] LABS: Glucose - Point of Care 137 mg/dl (70-99)
[2024-10-03 08:08] LABS: ALT (SGPT) 33 U/L (0-50); AST (SGOT) 27 U/L (17-59); Albumin 2.9 g/dl (3.5-5.0); Alkaline Phosphatase 69 U/L (38-126); Blood Urea Nitrogen 25 mg/dl (9-20); Calcium 7.8 mg/dl (8.4-10.2); Carbon Dioxide 22 mmol/L (22-30); Chloride 104 mmol/L (98-107); Estimated Creatinine Clearance 64 ml/min; Glucose 127 mg/dl (70-99); Potassium 3.6 mmol/L (3.5-5.1); Sodium 135 mmol/L (135-145); Total Bilirubin 0.7 mg/dl (0.2-1.3); Total Protein 5.1 g/dl (6.3-8.2); eGFR > 60.00
[2024-10-03 08:09] LABS: % Basophils 0.3 % (0-2); % Eosinophils 0.2 % (0-6); % Immature Granulocytes 1.8 % (0-0.5); % Lymphocytes 9.6 % (20.5-51.1); % Monocytes 9.3 % (1.7-9.3); % Neutrophils 78.8 % (42.2-75.2); Absolute Immature Granulocytes 0.2 10^3/uL (0-0.05); Absolute Lymphocytes 0.9 10^3/uL (1.2-3.4); Absolute Monocytes 0.8 10^3/uL (0.1-0.6); Absolute Neutrophils 7.1 10^3/uL (1.4-6.5); Hematocrit 31.4 % (39.0-52.0); Hemoglobin 11.2 g/dL (13.0-18.0); Mean Corp Hgb Conc. 35.7 g/dL (33.0-37.0); Mean Corpuscular Hgb 32.3 pg (27.0-31.0); Mean Corpuscular Volume 90.5 fL (80.0-94.0); Mean Platelet Volume 11.5 fL (7.4-10.4); Nucleated Red Blood Cells % 0 % (-); Platelet Count 112 10^3/uL (130-400); Red Blood Cell Count 3.47 10^6/uL (4.70-6.10); Red Cell Dist. Width 13.2 % (11.5-14.5)
[2024-10-03] MEDS: NOVOLOG FLEXPEN-MODERATE RESISTANCE SC (08:18)
--- NOTE | 2024-10-03 08:22 | PHA.VAN.FU ---
Vancomycin Assessment / Plan
- Assessment
Renal Function: SCR Decreasing (1.9-->1.2)
WBC's are: Trending Down
In the past 24 hrs, patient has been: Febrile (100.4F)
Concomitant Antimicrobials: CEFEPIME
- Assessment - Therapeutic Drug Monitoring
Random Level: 6.6
- Dosing Plan
Dosing by Level: Re-dose today (2000MG)
- Monitoring Plan
Random Level: 10/04 IN AM
- Follow Up
Pharmacy will continue to follow.
Vancomycin Follow UP
- -
Patient Age: 74
Patient Sex: Male
Vancomycin Day #: 2
Indication: Bacteremia
Requesting Provider: Dr. Gautam
Pertinent Antimicrobial Allergies:
pcns=mild rash from zosyn
Height / Weight:
Height 6 ft 3 in
Actual Weight 92.397 kg
IBW in k.5
- Vital Signs / Lab Results
Temp Pulse Resp BP Pulse Ox
98.5 F 75 18 124/65 97
10/03/24 07:50 10/03/24 07:50 10/03/24 07:50 10/03/24 07:50 10/03/24 07:50
Lab Results - Hematology
10/01/24 10/02/24 10/03/24
16:47 06:23 06:21
WBC 17.3 H 12.4 H 9.0
Lab Results - Chemistry
10/01/24 10/02/24 10/03/24
16:47 06:23 06:21
BUN 34 H 33 H 25 H
Creatinine 1.9 H 1.6 H 1.2
Estimated Creat Clear 48 64
Albumin 4.1 3.0 L 2.9 L
10/01/24 10/01/24
16:47 20:45
Lactic Acid 1.6 Cancelled
Microbiology Results
10/02/24 01:18 MRSA Screen - Final
Nose No Methicillin Resistant Staphylococcus aureus isolated.
10/02/24 07:21 Blood Parasites Smear - Final
Blood/Venous
10/02/24 10:05 Legionella Urinary Antigen - Final
Urine Negative for Legionella pneumophila Serogroup 1 antigen.
A negative result does not rule out the possiblity of
Legionella infection due to other serogroups or species of
Legionella. Clinical correlation is recommended.
Streptococcus pneumoniae Antigen (M - Final
Negative for Streptococcus pneumoniae antigen.
A negative result does not exclude infection with
Streptococcus pneumoniae. Clinical correlation is
recommended.
10/01/24 16:47 Blood Culture - Preliminary
Blood/Venous Positive culture in progress
Gram Stain - Preliminary
10/01/24 17:48 Blood Culture - Preliminary
Blood/Venous Positive culture in progress
Gram Stain - Preliminary
10/01/24 17:48 Influenza Types A & B (MARIA M) - Final
Nasal Swab Negative for Influenza A & B, NAAT
Negative results must be combined with clinical observations
and patient history.
Nucleic Acid Amplification test (NAAT)performed on the
[employer] platform.
Therapeutic Drug Monitoring
Random Vancomycin 6.6 ug/ml 10/03/24 06:21
[2024-10-03] MEDS: MAXIPIME 2000 MG IV ×2 (08:24→22:19)
[2024-10-03] MEDS: HEPARIN 5000 UNITS SC ×2 (08:24→17:13)
[2024-10-03] MEDS: STERILE WATER FOR INJECTION 10 ML IV ×2 (08:24→22:20)
[2024-10-03] MEDS: NSS 1000 IV (08:25)
[2024-10-03] MEDS: NEURONTIN 300 MG PO ×3 (08:25→22:19)
[2024-10-03] MEDS: VANCOCIN 540 MG IV (08:47)
--- NOTE | 2024-10-03 10:25 | W.PN.HOSP.TC ---
Today's Communication/Plan
-
Echo
cont abx
stop IVF
Assessment / Plan
Assessment / Plan
74yo M with PMHx of s/p bioprosthetic valve @2020, DM, HLD, HTN, PAD, neuropathy sent by his doctor due to ill appearing look due to 1 week of chills and few weekls of nausea, vomiting and diarrhea. Managed for possible RML pneumonia and found
bacteremia
A/P:
#RML CAP
#bacteremia
With Hx of bioprosthetic valve -Echo
ID consult
legionella and S.pneumonia urinary Ag neg
Sputum Cx
Vanco/Cefepime
CT chest without persuasive CAP signs
Bcx with coag neg staph
repeat Bcx pending
#Chills, nausea, vomiting, diarrhea
r/o c.diff
CT abd/pelvis unremarkable
Zofran as needed
UA neg for UTI
check Bcx
blood parasite neg
Lyme pending
No metabolic acidosis on labs
#minimally elevated AST
CPK minimally elevated
Hepatitis panel
follow LFT
#asymptomatic cholelithiasis
#AMRIK with mild hyponatremia
Cr baseline 0.9
resolved on IVF
#DM type 2 with neuropathy
cont basal insulin reduced dose
Accuchecks, Insulin SS, DM diet
decrease Gabapentin
#Essential HTN
hold chlorthalidone and Faxiga
#HLD
#PAD
cont meds
DVT ppx hep
Full code
I have spent at least 58min reviewing chart, test results and providing direct patient care
Anticipated Discharge: > 48 hours
Subjective/Interval History
-
Date of Service: October 03, 2024
Objective Data
-
Labs:
Laboratory Results
10/03/24
06:21
WBC 9.0
Hgb 11.2 L
Hct 31.4 L
Plt Count 112 L
Sodium 135
Potassium 3.6
Chloride 104
Carbon Dioxide 22
BUN 25 H
Creatinine 1.2
Glucose 127 H
Calcium 7.8 L
Total Bilirubin 0.7
AST 27
ALT 33
Alkaline Phosphatase 69
Vital Signs:
Vital Signs
Temp Pulse Resp BP Pulse Ox
98.5 F 75 18 124/65 97
10/03/24 07:50 10/03/24 07:50 10/03/24 07:50 10/03/24 07:50 10/03/24 07:50
I&O
10/02/24 10/03/24 10/04/24
06:59 06:59 06:59
Intake Total 480 / 480 3320 / 3320
Output Total 600 / 600 1875 / 1875
Balance -120 / -120 1445 / 1445
Review of Systems
-
History Source: Patient
All other systems: Reviewed and negative
Physical Exam
-
General: Comfortable
Respiratory: Clear to Auscultation
Cardiac: Regular Rhythm
GI: Soft, Nontender and Nondistended
Neuro: Awake, Alert, Oriented and AO x 3
Psych: Calm
--- NOTE | 2024-10-03 12:11 | W.PN.ID1 ---
Date of Service
Date of Service: October 03, 2024
Today's Communication
Continue antibiotics.
Assessment / Plan
Bacteremia with coag negative staph (high-grade)
Leukocytosis
Fever/chills
Diarrhea
[facility]
HTN
DM with neuropathy/retinopathy
HLD
PAD
Valvulopathy (aortic stenosis)
Ambulatory dysfunction
Recommendations:
Continue empiric vancomycin. Further cefepime can be discontinued at this time.
Repeat blood cultures x 2.
Await further ID and susceptibility data from current positive blood cultures.
Echocardiogram (TTE) ordered. Await results.
Further recommendations as additional data is returned.
Chief Complaint
-: Leukocytosis and Bacteremia
Subjective / Review of Systems
Review of Systems: No Fever and No Chills
Vital Signs / Physical Exam
Vital Signs
Vital Signs
Temp Pulse Resp BP Pulse Ox
98.5 F 75 18 124/65 97
10/03/24 07:50 10/03/24 07:50 10/03/24 07:50 10/03/24 07:50 10/03/24 07:50
Physical Exam
Constitutional: No Acute Distress, Comfortable and Non-toxic
Eyes: No Conjunctival Hemorrhage
Cardiovascular: S1/S2; Negative S3/S4 or Murmur
Pulmonary: Non Labored
Gastrointestinal: Soft, Non Tender and Non Distended
Skin: Negative Rash or Jaundice
Neurological: Awake and Alert
Psychological: Calm
Objective Data
Lab Data
Lab Results
10/03/24 06:21
10/03/24 06:21
Estimated Creat Clear 64 ml/min 10/03/24 06:21
Lactic Acid Cancelled 10/01/24 20:45
Total Bilirubin 0.7 mg/dl (0.2-1.3) 10/03/24 06:21
AST 27 U/L (17-59) 10/03/24 06:21
ALT 33 U/L (0-50) 10/03/24 06:21
Alkaline Phosphatase 69 U/L (38-126) 10/03/24 06:21
Most recent labs reviewed.
Micro Results:
10/02/24 11:43 Blood Culture - Preliminary
Blood/Venous No Growth in 24 hours- Final report to follow
10/03/24 10:37 C. difficile GDH Antigen & Toxins - Final
Feces/Stool Negative for toxigenic C.difficile
10/03/24 10:38 Salmonella/Shigella Culture - Pending
Feces/Stool Campylobacter Culture - Pending
Shiga Toxin Test - Pending
10/01/24 17:48 Blood Culture - Preliminary
Blood/Venous Coagulase neg. staphylococcus
Gram Stain - Preliminary
10/01/24 16:47 Blood Culture - Preliminary
Blood/Venous Coagulase neg. staphylococcus
Gram Stain - Preliminary
10/02/24 01:18 MRSA Screen - Final
Nose No Methicillin Resistant Staphylococcus aureus isolated.
10/02/24 07:21 Blood Parasites Smear - Final
Blood/Venous
10/02/24 12:07 Blood Culture - Pending
Blood/Venous
10/02/24 10:05 Legionella Urinary Antigen - Final
Urine Negative for Legionella pneumophila Serogroup 1 antigen.
A negative result does not rule out the possiblity of
Legionella infection due to other serogroups or species of
Legionella. Clinical correlation is recommended.
Streptococcus pneumoniae Antigen (M - Final
Negative for Streptococcus pneumoniae antigen.
A negative result does not exclude infection with
Streptococcus pneumoniae. Clinical correlation is
recommended.
10/01/24 17:48 Influenza Types A & B (MARIA M) - Final
Nasal Swab Negative for Influenza A & B, NAAT
Negative results must be combined with clinical observations
and patient history.
Nucleic Acid Amplification test (NAAT)performed on the
[employer] platform.
Imaging:
10/02/24 CT chest/abdomen/pelvis without contrast: Mild subsegmental atelectasis in bilateral lung bases. No focal consolidation. Multiple noncalcified gallstones are noted in the gallbladder lumen. No appreciable gallbladder wall thickening or
pericholecystic fluid. Bilateral kidneys are within normal limits. No hydronephrosis or nephrolithiasis noted. No bowel wall thickening, obstruction or inflammation noted. Urinary bladder is unremarkable. Please see full dictation for
additional detail..
[2024-10-03 12:19] LABS: Glucose - Point of Care 223 mg/dl (70-99)
[2024-10-03] MEDS: NOVOLOG FLEXPEN-MODERATE RESISTANCE 3 UNITS SC (12:38)
[2024-10-03 15:40] VITALS: BP 141/75
[2024-10-03 16:45] LABS: Glucose - Point of Care 159 mg/dl (70-99)
[2024-10-03] MEDS: NOVOLOG FLEXPEN-MODERATE RESISTANCE 1 UNITS SC (17:14)
[2024-10-03] MEDS: NOVOLOG FLEXPEN 8 UNITS SC (17:14)
[2024-10-03] MEDS: ZETIA 10 MG PO (22:19)
[2024-10-03] MEDS: ASPIR LOW (ENTERIC COATED) 81 MG PO (22:19)
[2024-10-03] MEDS: BYSTOLIC 10 MG PO (22:19)
[2024-10-03] MEDS: LANTUS 0.22 UNITS SC (22:45)
[2024-10-03 22:46] LABS: Glucose - Point of Care 204 mg/dl (70-99)
[2024-10-03 23:00] VITALS: BP 136/77
[2024-10-03] MEDS: HEPARIN SC (23:02)
[2024-10-04 07:18] LABS: % Basophils 0.3 % (0-2); % Eosinophils 2.3 % (0-6); % Immature Granulocytes 1.1 % (0-0.5); % Lymphocytes 12.3 % (20.5-51.1); % Monocytes 10.4 % (1.7-9.3); % Neutrophils 73.6 % (42.2-75.2); Absolute Eosinophils 0.2 10^3/uL (0-0.7); Absolute Immature Granulocytes 0.1 10^3/uL (0-0.05); Absolute Lymphocytes 0.9 10^3/uL (1.2-3.4); Absolute Monocytes 0.8 10^3/uL (0.1-0.6); Absolute Neutrophils 5.5 10^3/uL (1.4-6.5); Hematocrit 33.7 % (39.0-52.0); Hemoglobin 12.1 g/dL (13.0-18.0); Mean Corp Hgb Conc. 35.9 g/dL (33.0-37.0); Mean Corpuscular Hgb 31.8 pg (27.0-31.0); Mean Corpuscular Volume 88.7 fL (80.0-94.0); Mean Platelet Volume 11.2 fL (7.4-10.4); Nucleated Red Blood Cells % 0 % (-); Platelet Count 125 10^3/uL (130-400); Red Cell Dist. Width 12.7 % (11.5-14.5); Vancomycin Random 10.8 ug/ml; White Blood Cell Count 7.5 10^3/uL (4.8-10.8)
[2024-10-04 07:28] LABS: ALT (SGPT) 33 U/L (0-50); AST (SGOT) 25 U/L (17-59); Albumin 3.1 g/dl (3.5-5.0); Alkaline Phosphatase 80 U/L (38-126); Blood Urea Nitrogen 18 mg/dl (9-20); Calcium 8.4 mg/dl (8.4-10.2); Carbon Dioxide 23 mmol/L (22-30); Chloride 103 mmol/L (98-107); Estimated Creatinine Clearance 76 ml/min; Glucose 121 mg/dl (70-99); Potassium 3.7 mmol/L (3.5-5.1); Sodium 135 mmol/L (135-145); Total Bilirubin 0.6 mg/dl (0.2-1.3); Total Protein 5.4 g/dl (6.3-8.2); eGFR > 60.00
[2024-10-04 07:45] VITALS: BP 143/79
[2024-10-04 07:51] LABS: Glucose - Point of Care 198 mg/dl (70-99)
[2024-10-04] MEDS: NOVOLOG FLEXPEN-MODERATE RESISTANCE 1 UNITS SC ×2 (08:03→11:57)
[2024-10-04] MEDS: NOVOLOG FLEXPEN 8 UNITS SC ×3 (08:04→17:33)
--- NOTE | 2024-10-04 08:33 | PHA.VAN.FU ---
Vancomycin Assessment / Plan
- Assessment
Renal Function: SCR Decreasing (1.2->1.0)
WBC's are: WNL (7.5)
In the past 24 hrs, patient has been: Afebrile
- Assessment - Therapeutic Drug Monitoring
Random Level: 10.8 ~22H after 2000mg one time dose
- Dosing Plan
Adjust Regimen to: Vanco 1000mg Q12H Starting 10/04/24 1800
Will give 1000mg x1 dose right now for 10/04/24 AM and Start SIVAN 1000mg Q12H at 1800
- Monitoring Plan
No level(s) ordered at this time: Consider in the next few days
- Follow Up
Pharmacy will continue to follow.
Vancomycin Follow UP
- -
Patient Age: 74
Patient Sex: Male
Vancomycin Day #: 3
Indication: Bacteremia
Requesting Provider: Dr. Gautam
Pertinent Antimicrobial Allergies:
pcns=mild rash from zosyn
Height / Weight:
Height 6 ft 3 in
Actual Weight 92.397 kg
IBW in k.5
- Vital Signs / Lab Results
Temp Pulse Resp BP Pulse Ox
99.5 F 73 18 143/79 97
10/04/24 07:45 10/04/24 07:45 10/04/24 07:45 10/04/24 07:45 10/04/24 07:45
Lab Results - Hematology
10/01/24 10/02/24 10/03/24
16:47 06:23 06:21
WBC 17.3 H 12.4 H 9.0
10/04/24
06:39
WBC 7.5
Lab Results - Chemistry
10/01/24 10/02/24 10/03/24
16:47 06:23 06:21
BUN 34 H 33 H 25 H
Creatinine 1.9 H 1.6 H 1.2
Estimated Creat Clear 48 64
Albumin 4.1 3.0 L 2.9 L
10/04/24
06:39
BUN 18
Creatinine 1.0
Estimated Creat Clear 76
Albumin 3.1 L
10/01/24 10/01/24
16:47 20:45
Lactic Acid 1.6 Cancelled
Microbiology Results
10/02/24 12:07 Blood Culture - Preliminary
Blood/Venous Positive culture in progress
Gram Stain - Preliminary
10/02/24 11:43 Blood Culture - Preliminary
Blood/Venous Positive culture in progress
Gram Stain - Preliminary
10/01/24 17:48 Blood Culture - Preliminary
Blood/Venous Coagulase neg. staphylococcus
Gram Stain - Preliminary
10/01/24 16:47 Blood Culture - Preliminary
Blood/Venous Coagulase neg. staphylococcus
Gram Stain - Preliminary
10/03/24 10:37 C. difficile GDH Antigen & Toxins - Final
Feces/Stool Negative for toxigenic C.difficile
10/02/24 01:18 MRSA Screen - Final
Nose No Methicillin Resistant Staphylococcus aureus isolated.
10/02/24 07:21 Blood Parasites Smear - Final
Blood/Venous
10/02/24 10:05 Legionella Urinary Antigen - Final
Urine Negative for Legionella pneumophila Serogroup 1 antigen.
A negative result does not rule out the possiblity of
Legionella infection due to other serogroups or species of
Legionella. Clinical correlation is recommended.
Streptococcus pneumoniae Antigen (M - Final
Negative for Streptococcus pneumoniae antigen.
A negative result does not exclude infection with
Streptococcus pneumoniae. Clinical correlation is
recommended.
Therapeutic Drug Monitoring
Random Vancomycin 10.8 ug/ml 10/04/24 06:39
[2024-10-04] MEDS: LIPITOR 20 MG PO (09:18)
[2024-10-04] MEDS: VANCOCIN 200 IV ×2 (09:18→17:32)
[2024-10-04] MEDS: HEPARIN 5000 UNITS SC ×2 (09:18→15:39)
[2024-10-04] MEDS: NEURONTIN 300 MG PO ×3 (09:18→22:18)
--- NOTE | 2024-10-04 10:50 | W.PN.ID1 ---
Date of Service
Date of Service: October 04, 2024
Today's Communication
Continue vancomycin. Recheck blood cultures.
Assessment / Plan
Bacteremia with coag negative staph (high-grade)
Leukocytosis
Fever/chills
Diarrhea
[facility])
HTN
DM with neuropathy/retinopathy
HLD
PAD
Valvulopathy (aortic stenosis)
Ambulatory dysfunction
Recommendations:
Admission blood cultures with Staphylococcus intermedius, along with an Enterococcus species. Blood cultures from 10/02 are now also positive.
Continue empiric vancomycin. Follow Vanco levels to prevent nephrotoxicity.
Repeat blood cultures x 2 today
Await further ID and susceptibility data from current positive blood cultures.
Echocardiogram (TTE) does not reveal vegetation. If blood cultures persistently positive, may need BRIAN.
Patient also concerned about left foot plantar ulceration which appears to have some slight drainage today. Would recommend Podiatry evaluation. Will check plain film to assess for bony destruction.
Further recommendations as additional data is returned.
����������������������������������������������������������
Chief Complaint
-: Leukocytosis and Bacteremia
Subjective / Review of Systems
Review of Systems: No Fever and No Chills
Vital Signs / Physical Exam
Vital Signs
Vital Signs
Temp Pulse Resp BP Pulse Ox
99.5 F 73 18 143/79 97
10/04/24 07:45 10/04/24 07:45 10/04/24 07:45 10/04/24 07:45 10/04/24 07:45
Physical Exam
Constitutional: No Acute Distress, Comfortable and Non-toxic
Eyes: No Conjunctival Hemorrhage and Sclera Anicteric
Cardiovascular: S1/S2; Negative S3/S4
Pulmonary: Non Labored
Gastrointestinal: Soft and Non Tender
Neurological: Awake and Alert
Psychological: Calm
Objective Data
Lab Data
Lab Results
10/04/24 06:39
10/04/24 06:39
Estimated Creat Clear 76 ml/min 10/04/24 06:39
Lactic Acid Cancelled 10/01/24 20:45
Total Bilirubin 0.6 mg/dl (0.2-1.3) 10/04/24 06:39
AST 25 U/L (17-59) 10/04/24 06:39
ALT 33 U/L (0-50) 10/04/24 06:39
Alkaline Phosphatase 80 U/L (38-126) 10/04/24 06:39
Most recent labs reviewed.
Micro Results:
10/04/24 10:37 Blood Culture - Pending
Blood/Venous
10/03/24 10:38 Salmonella/Shigella Culture - Pending
Feces/Stool Campylobacter Culture - Pending
Shiga Toxin Test - Final
No E. coli Shiga Toxin 1 or 2 detected.
10/01/24 17:48 Blood Culture - Preliminary
Blood/Venous Staphylococcus intermedius
Enterococcus species
Gram Stain - Preliminary
10/01/24 16:47 Blood Culture - Preliminary
Blood/Venous Staphylococcus intermedius
Enterococcus species
Gram Stain - Preliminary
10/02/24 12:07 Blood Culture - Preliminary
Blood/Venous Positive culture in progress
Gram Stain - Preliminary
10/02/24 11:43 Blood Culture - Preliminary
Blood/Venous Positive culture in progress
Gram Stain - Preliminary
10/03/24 10:37 C. difficile GDH Antigen & Toxins - Final
Feces/Stool Negative for toxigenic C.difficile
10/02/24 01:18 MRSA Screen - Final
Nose No Methicillin Resistant Staphylococcus aureus isolated.
10/02/24 07:21 Blood Parasites Smear - Final
Blood/Venous
10/02/24 10:05 Legionella Urinary Antigen - Final
Urine Negative for Legionella pneumophila Serogroup 1 antigen.
A negative result does not rule out the possiblity of
Legionella infection due to other serogroups or species of
Legionella. Clinical correlation is recommended.
Streptococcus pneumoniae Antigen (M - Final
Negative for Streptococcus pneumoniae antigen.
A negative result does not exclude infection with
Streptococcus pneumoniae. Clinical correlation is
recommended.
10/01/24 17:48 Influenza Types A & B (MARIA M) - Final
Nasal Swab Negative for Influenza A & B, NAAT
Negative results must be combined with clinical observations
and patient history.
Nucleic Acid Amplification test (NAAT)performed on the
[employer] platform.
Imaging:
10/02/24 CT chest/abdomen/pelvis without contrast: Mild subsegmental atelectasis in bilateral lung bases. No focal consolidation. Multiple noncalcified gallstones are noted in the gallbladder lumen. No appreciable gallbladder wall thickening or
pericholecystic fluid. Bilateral kidneys are within normal limits. No hydronephrosis or nephrolithiasis noted. No bowel wall thickening, obstruction or inflammation noted. Urinary bladder is unremarkable. Please see full dictation for
additional detail..
Care Review
Plan reviewed with: Physician (Hospitalist)
[2024-10-04 11:49] LABS: Glucose - Point of Care 176 mg/dl (70-99)
[2024-10-04 12:01] LABS: Lyme Antibody Screen, EIA Negative (Negative)
--- NOTE | 2024-10-04 12:07 | W.PN.HOSP.TC ---
Today's Communication/Plan
-
TTE
cards input
check orthos
Assessment / Plan
Assessment / Plan
74yo M with PMHx of s/p bioprosthetic valve @2020, DM, HLD, HTN, PAD, neuropathy sent by his doctor due to ill appearing look due to 1 week of chills and few weekls of nausea, vomiting and diarrhea. Managed for possible RML pneumonia and found
bacteremia
A/P:
#RML CAP
#bacteremia
With Hx of bioprosthetic valve -Echo
ID consult
legionella and S.pneumonia urinary Ag neg
Sputum Cx
Vanco continue. Cefepime stopped
CT chest without persuasive CAP signs
Bcx with coag neg staph
repeat Bcx pending
Cards eval -follows w/Dr. Edmond as OP
#left foot ulcer
-Follows Dr. Card Texted-awaiting to hear back.
-xray negative for OM.
#Chills, nausea, vomiting, diarrhea
r/o c.diff
CT abd/pelvis unremarkable
Zofran as needed
UA neg for UTI
check Bcx
blood parasite neg
Lyme pending
No metabolic acidosis on labs
resolved.
#minimally elevated AST
CPK minimally elevated
Hepatitis panel
follow LFT
#asymptomatic cholelithiasis
#AMRIK with mild hyponatremia
Cr baseline 0.9
resolved on IVF
#DM type 2 with neuropathy
cont basal insulin reduced dose
Accuchecks, Insulin SS, DM diet
on Gabapentin
a1c at 6.4
#Essential HTN
check orthos-if negative restart chlorthalidone and Faxiga
#AMRIK likely pre-renal
-resolved
#HLD
#PAD
cont meds
Lightheadedness
-check orthos
DVT ppx hep
Full code
d/w with spouse at bedside in details
d/w with ID
Anticipated Discharge: > 48 hours
Subjective/Interval History
-
Date of Service: October 04, 2024
feeling lightheaded upon standing up
poor appetite
Objective Data
-
Labs:
Laboratory Results
10/04/24
06:39
WBC 7.5
Hgb 12.1 L
Hct 33.7 L
Plt Count 125 L
Sodium 135
Potassium 3.7
Chloride 103
Carbon Dioxide 23
BUN 18
Creatinine 1.0
Glucose 121 H
Calcium 8.4
Total Bilirubin 0.6
AST 25
ALT 33
Alkaline Phosphatase 80
Vital Signs:
Vital Signs
Temp Pulse Resp BP Pulse Ox
99.5 F 73 18 143/79 97
10/04/24 07:45 10/04/24 07:45 10/04/24 07:45 10/04/24 07:45 10/04/24 07:45
I&O
10/03/24 10/04/24 10/05/24
06:59 06:59 06:59
Intake Total 3320 / 3320 600 / 600 250 / 250
Output Total 1875 / 1875 1000 / 1000 800 / 800
Balance 1445 / 1445 -400 / -400 -550 / -550
Physical Exam
-
General: Well Nourished, No Apparent Distress and Comfortable
Respiratory: Clear to Auscultation
Cardiac: Regular Rhythm and S1/S2; Negative Murmur
GI: Soft, Nontender and Nondistended
Neuro: Awake, Alert, Oriented, AO x 3 and No Motor Deficits; Negative Slurred Speech or Facial Droop
Psych: Calm
Data Reviewed
-
Total Time Spent with Patient (in minutes): 55
--- NOTE | 2024-10-04 12:14 | CON.CAR ---
Addendum entered and electronically signed by Ras Edmond MD 10/04/24 17:05:
74-year-old man with SAVR in 2019 now admitted with 2-week history of fevers, chills, rigor and multiple blood cultures with Staphylococcus intermedius and an enterococcal species
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
anterior fascicular block, first-degree AV block, peripheral neuropathy
Current medications: Aspirin 81 mg a day, atorvastatin 20 mg 3 days a week, Nebivolol 10 mg at bedtime, subcu heparin, insulin, ezetimibe, gabapentin, vancomycin
135/76, pulse 72, respirate 16, afebrile, sats are 98%,No acute distress, poor dentition, no peripheral stigmata of SBE, head neck exam otherwise unremarkable, lungs are clear, regular rate and rhythm without obvious murmurs, pulses are modestly
brisk, abdomen benign, distal pulses diminished but palpable.
Hemoglobin 12.1, white count 7.5, platelets 125, BUN/creatinine 18 and 1.0, potassium 3.7
Echo 10/04/2024: EF 50-55%, normal RV, normal atria, dense MAC, no mitral regurgitation, peak and mean mitral gradients are 8 and 4 mmHg, mild TR, pulmonary pressure 34 mmHg, peak and mean aortic valve gradients are 32 and 19, no aortic regurgitation,
ECG: Pending
Impression:
Bacteremia with strep intermedius and enterococcus
Bioprosthetic aortic valve replacement 2019
Hypertension
Hyperlipidemia
Type 2 diabetes
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
Diabetic foot ulcer
Right bundle branch block, left anterior fascicular block, first-degree AV block
Plan:
He presents with bacteremia and a high level of concern for prosthetic valve endocarditis. Currently he is on appropriate antibiotic therapy.
Discussed with infectious diseases. Will proceed with transesophageal echo mid-to-late next week. No obvious evidence of vegetation on transthoracic echo, though suspicion for PVE remains high.
Original Note:
Consultation
Consultation Request
Date/Time Consultation Requested: 10/04/2024
Date/Time Consultation Performed: 10/04/2024
Requesting Provider: Dr. George
Performing Provider: Dominique Wilson PA-C for Dr. GEORGE Edmond
Reason for Consultation: Bacteremia, h/o AVR
Medical History
-
History of Present Illness:
HPI: Nav is a 74 year old male with PMH of bicuspid aortic valve s/p AVR in 2019, HTN, HLD, DM2, and PAD. He presented to the ER for evaluation of nausea, vomiting, and chills. Symptoms had been ongoing for the past 2 weeks while traveling, and
upon returning home a few days ago felt worse, prompting ER evaluation. In ER, he was found to have possible RML pneumonia and bacteremia. Admitted for further workup and management. ID consulted and he continues on vancomycin. Repeat blood cultures
were still positive on 10/02. Given h/o bioprosthetic AVR, cardiology consulted to consider BRIAN. Patient reports no chest pain, cough, or SOB at this time.
PMH:
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
Post-op paroxysmal atrial fibrillation
HTN
HLD
DM2
PAD s/p L great toe amputation
Past Medical History
Past Medical History: Other (In HPI)
Past Surgical History: Cardiac (bioprostetic AVR 02/2020), Tonsilectomy and Other (L great toe amputation 06/2021)
Social History
Tobacco: Non-Smoker
Alcohol: Occasional
Drug: None
Personal:
Living: With Family
Employment: Retired
Family History
Family History: CAD
Allergies / Home Medications
Allergy/AdvReac Type Severity Reaction Status Date / Time
Penicillins Allergy mild rash Verified 06/27/21 09:51
from zoysn
06/23/21,Tolerated
in
past,kathleen
cephalosp
simvastatin Allergy myalgias Verified 06/26/21 16:23
�Medication �Instructions �Recorded �Confirmed �Type
amlodipine 5 mg tablet 5 mg PO DAILY Blood pressure 11/24/19 10/01/24 History
aspirin 81 mg tablet,delayed 81 mg PO HS Blood clot 11/24/19 10/01/24 History
release prevention/tx
gabapentin 600 mg tablet 600 mg PO TID Neurological 11/24/19 10/01/24 History
Condition
atorvastatin 20 mg tablet 20 mg PO MOWEFR High cholesterol 01/15/21 10/01/24 History
nebivolol 10 mg tablet 10 mg PO HS Blood pressure 01/15/21 10/01/24 History
insulin glargine 100 unit/mL (3 22 units SC HS ##1 06/28/21 10/01/24 Rx
mL) subcutaneous pen (Lantus
Solostar U-100 Insulin)
chlorthalidone 25 mg tablet 25 mg PO DAILY Blood Pressure 10/01/24 10/01/24 History
cyclobenzaprine 10 mg tablet 10 mg PO DAILYPRN PRN muscle spasms 10/01/24 10/01/24 History
dapagliflozin propanediol 10 mg 10 mg PO MOWEFR Diabetes 10/01/24 10/01/24 History
tablet (Farxiga)
ezetimibe 10 mg tablet 10 mg PO HS High Cholesterol 10/01/24 10/01/24 History
insulin aspart U-100 100 unit/mL 8 units SC AC Diabetes 10/01/24 10/01/24 History
(3 mL) subcutaneous pen (Novolog
FlexPen U-100 Insulin aspart)
lisinopril 40 mg tablet 40 mg PO DAILY Blood Pressure 10/01/24 10/01/24 History
semaglutide 0.25 mg or 0.5 mg (2 0.25 mg SC BELLO Diabetes 10/01/24 10/01/24 History
mg/3 mL) subcutaneous pen injector
(Ozempic)
therapeutic multivitamin 1 tab PO DAILY Supplement 10/01/24 10/01/24 History
vitamin B complex 1 tab PO DAILY Supplement 10/01/24 10/01/24 History
Review of Systems
-
History Source: Patient
All other systems: Negative unless noted
Physical Exam
Vital Signs
Temp Pulse Resp BP Pulse Ox
99.5 F 73 18 143/79 97
10/04/24 07:45 10/04/24 07:45 10/04/24 07:45 10/04/24 07:45 10/04/24 07:45
Lab Results
10/04/24 06:39
10/04/24 06:39
Physical Exam
General: Well Developed, Well Nourished and No Apparent Distress
HEENT: Normocephalic, Anicteric and Moist Mucous Membranes
Respiratory: Clear and Non Labored Respirations
Cardiac: S1/S2 and Regular Rhythm
Musculoskeletal: No Clubbing, No Cyanosis and No Edema
Skin: Warm and Dry
Neuro: AO x 3 and Nonfocal/Grossly Intact
Psych: Calm
Impression / Plan
-
PCP: Dr. Hanley
Caddy Master: Dr. GEORGE Edmond
Impression:
Presented with chills, n/v/d
Bacteremia
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
Post-op paroxysmal atrial fibrillation
HTN
HLD
DM2
PAD s/p L great toe amputation
Echo 10/09/2022: EF 50-55%, mod cLVH, mild MS with peak/mean gradients 8/3 mmHg, bioprosthetic AVR w/ peak/mean gradients 24/15 mmHg, mild TR, estimated PAP 38 mmHg
Echo 10/04/2024: Study pending
Plan:
-Presented with nausea, vomiting, diarrhea, and chills. Admitted w/ bacteremia. Continue abx per ID
-Repeat blood cultures 10/02 remained positive. Repeat BC drawn again today, 10/04. Follow results.
-Afebrile since 10/02. WBC downtrending.
-Reports no cough. CXR concerning for possible RML pneumonia, however not noted on CT of chest/abdomen/pelvis.
-R foot xray without evidence of osteomyelitis.
-Echo completed 10/04, await results. Pending results of TTE and repeat blood cultures from 10/04, may consider BRIAN.
-Continue aspirn, lipitor, zetia w/ h/o PAD.
-Continue Bystolic. Chlorthalidone and lisinopril on hold due to AMRIK w/ creat of 1.9 on arrival, Creat improved to 1.0 on 10/04
-BP trending up, could consider resuming amlodipine 5mg daily, would follow closely as he did have some hypotension earlier in admission.
-EKG reviewed, SR with no acute ischemic changes noted. In SR on review of telemetry.
HPI: Nav is a 74 year old male with PMH of bicuspid aortic valve s/p AVR in 2019, HTN, HLD, DM2, and PAD. He presented to the ER for evaluation of nausea, vomiting, and chills. Symptoms had been ongoing for the past 2 weeks while traveling, and
upon returning home a few days ago felt worse, prompting ER evaluation. In ER, he was found to have possible RML pneumonia and bacteremia. Admitted for further workup and management. ID consulted and he continues on vancomycin. Repeat blood cultures
were still positive on 10/02. Given h/o bioprosthetic AVR, cardiology consulted to consider BRIAN. Patient reports no chest pain, cough, or SOB at this time.
Data Reviewed
-
EKG: Tracing Personally Visualized and interpreted
Radiology: Report Reviewed by me
CT Scan: Report Reviewed by me
Labs: Labs Reviewed by me
Old Records: Reviewed
[2024-10-04 13:06] VITALS: BP 111/86; BP 147/76; BP 148/80; PULSE 73; PULSE 76
[2024-10-04 15:18] VITALS: BP 154/84; PULSE 74
[2024-10-04 15:26] VITALS: BP 135/76
--- NOTE | 2024-10-04 15:58 | CM ---
Reviewed the chart notes. CM continues to be available to patient/family and is monitoring medical plan for needs at discharge.
Plan: Discharge plans will depend on the patient's progress.
[2024-10-04 16:42] LABS: Glucose - Point of Care 126 mg/dl (70-99)
[2024-10-04] MEDS: NOVOLOG FLEXPEN-MODERATE RESISTANCE SC (17:32)
[2024-10-04 19:24] LABS: Hepatitis B Surface Antigen Negative (Negative)
[2024-10-04 19:42] LABS: Hepatitis B Core Ab, Total Negative (Negative); Hepatitis B Surface Antibody Negative; Hepatitis C Antibody Negative (Negative)
[2024-10-04] MEDS: ASPIR LOW (ENTERIC COATED) 81 MG PO (22:18)
[2024-10-04] MEDS: BYSTOLIC 10 MG PO (22:18)
[2024-10-04] MEDS: ZETIA 10 MG PO (22:18)
[2024-10-04] MEDS: LANTUS 0.22 UNITS SC (22:49)
[2024-10-04 22:53] LABS: Glucose - Point of Care 182 mg/dl (70-99)
[2024-10-04] MEDS: HEPARIN SC (23:28)
[2024-10-04 23:33] VITALS: BP 133/76
[2024-10-05] MEDS: VANCOCIN 200 IV ×2 (06:11→17:03)
[2024-10-05 07:39] LABS: Glucose - Point of Care 178 mg/dl (70-99)
[2024-10-05 07:55] VITALS: BP 153/85
--- NOTE | 2024-10-05 08:09 | W.CS.POD ---
Consult Summary - Podiatry
-
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
amputation of the left great toe in 2019, and subsequent partial first ray amputation of the same left foot in 2021. He presented to the ER for evaluation of nausea, vomiting, and chills and is being treated for possible RML pneumonia and
bacteremia, currently on Vancomycin as per ID. Podiatry has been consulted for the evaluation of a chronic ulceration of the left foot, present for several months duration. He was last seen in our office by Dr. Smith in May of 2024 and,
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 The patient reports having found someone and following for 3 visits before returning to [place]. He denies having any acute issues regarding the wound,
dresses the wound daily, and wears a surgical shoe. Today, the patient denies any fevers, chills or sweats, nor any stiffness behind the knee or in the groin.
Afebrile, VSS
WBC: 9.0 on admission, now 7.5
Blood Cultures 10/02/24: Staph Intermedius, Enterococcus species.
XRAYS left foot 10/04/24: Stable amputation of the first metatarsal. No acute fracture or dislocation. No aggressive osseous destructive changes. Mild joint space narrowing throughout the interphalangeal joints. Hammertoe deformities of the second
through fifth toes. Large plantar calcaneal enthesophyte. Soft tissue swelling about the forefoot. NO EVIDENCE OF OSTEOMYELITIS, LEFT FOOT.
Clinically, the pedal pulses are palpable, bilaterally, left stronger than right. Normal skin temp, decreased skin turgor and digital hair growth. He is broadly neuropathic, bilaterally. Partial first ray amputation of the left foot, site stable,
otherwise no overt deformities noted. There is a full skin thickness ulceration along the plantar left forefoot, centrally, sub-metatarsal head # 3, approximately 1cm in diameter. This probes to the deep fascial layer but not to bone. There is
bordering and overlying hyperkeratosis, and mild blood discharge on probing. No edema, erythema, cellulitis, malodor of the foot. No local signs of infection.
Assessment:
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 This is not a source of systemic infection.
Type 2 DM with peripheral neuropathy.
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
Plan:
With the use of an #15 blade, Left foot ulceration-excisional debridement of non-viable skin and subcutaneous tissue was performed at bedside, down to a healthy bleeding base. The wound was cleansed with saline, and dressed with adaptic, dry gauze,
kerlix.
Patient was advised to have his bring in his modified surgical shoe for use whenever weightbearing. Full WB in surgical shoe, OOB to bathroom only recommended at this time.
Wound care orders. This patient can be followed on an out-patient basis in our office upon discharge. Please reconsult as necessary.
[2024-10-05] MEDS: HEPARIN 5000 UNITS SC (08:20)
[2024-10-05] MEDS: NOVOLOG FLEXPEN-MODERATE RESISTANCE 1 UNITS SC (08:20)
[2024-10-05] MEDS: NOVOLOG FLEXPEN 8 UNITS SC ×3 (08:20→17:04)
[2024-10-05] MEDS: NEURONTIN 300 MG PO ×3 (08:20→21:42)
[2024-10-05 08:46] LABS: % Basophils 0.2 % (0-2); % Eosinophils 2.8 % (0-6); % Immature Granulocytes 0.9 % (0-0.5); % Lymphocytes 14.7 % (20.5-51.1); % Monocytes 9.3 % (1.7-9.3); % Neutrophils 72.1 % (42.2-75.2); Absolute Eosinophils 0.2 10^3/uL (0-0.7); Absolute Immature Granulocytes 0.1 10^3/uL (0-0.05); Absolute Lymphocytes 1.2 10^3/uL (1.2-3.4); Absolute Monocytes 0.8 10^3/uL (0.1-0.6); Absolute Neutrophils 5.9 10^3/uL (1.4-6.5); Hematocrit 35.7 % (39.0-52.0); Hemoglobin 12.6 g/dL (13.0-18.0); Mean Corp Hgb Conc. 35.3 g/dL (33.0-37.0); Mean Corpuscular Volume 87.9 fL (80.0-94.0); Mean Platelet Volume 11.5 fL (7.4-10.4); Nucleated Red Blood Cells % 0 % (-); Platelet Count 151 10^3/uL (130-400); Red Blood Cell Count 4.06 10^6/uL (4.70-6.10); Red Cell Dist. Width 12.5 % (11.5-14.5); White Blood Cell Count 8.2 10^3/uL (4.8-10.8)
[2024-10-05 09:07] LABS: Blood Urea Nitrogen 17 mg/dl (9-20); Calcium 8.8 mg/dl (8.4-10.2); Carbon Dioxide 26 mmol/L (22-30); Chloride 98 mmol/L (98-107); Estimated Creatinine Clearance 85 ml/min; Glucose 178 mg/dl (70-99); Potassium 3.7 mmol/L (3.5-5.1); Sodium 133 mmol/L (135-145); eGFR > 60.00
[2024-10-05 09:58] LABS: Erythrocyte Sed Rate 29 mm/hour (0-20)
--- NOTE | 2024-10-05 10:11 | PHA.VAN.FU ---
Vancomycin Assessment / Plan
- Assessment
Renal Function: Stable (0.9)
WBC's are: WNL
- Dosing Plan
Continue: Vanco 1G Q12H
- Monitoring Plan
No level(s) ordered at this time: Consider in the next few days
- Follow Up
Pharmacy will continue to follow.
Vancomycin Follow UP
- -
Patient Age: 74
Patient Sex: Male
Vancomycin Day #: 3
Indication: Bacteremia
Requesting Provider: Dr. Gautam
Pertinent Antimicrobial Allergies:
pcns=mild rash from zosyn
Height / Weight:
Height 6 ft 3 in
Actual Weight 92.397 kg
IBW in k.5
- Vital Signs / Lab Results
Temp Pulse Resp BP Pulse Ox
98.9 F 70 18 153/85 97
10/05/24 07:55 10/05/24 07:55 10/05/24 07:55 10/05/24 07:55 10/05/24 07:55
Lab Results - Hematology
10/03/24 10/04/24 10/05/24
06:21 06:39 07:49
WBC 9.0 7.5 8.2
Lab Results - Chemistry
10/03/24 10/04/24 10/05/24
06:21 06:39 07:49
BUN 25 H 18 17
Creatinine 1.2 1.0 0.9
Estimated Creat Clear 64 76 85
Albumin 2.9 L 3.1 L
Microbiology Results
10/01/24 16:47 Blood Culture - Preliminary
Blood/Venous Staphylococcus intermedius
Enterococcus species
Gram Stain - Preliminary
10/03/24 10:38 Salmonella/Shigella Culture - Final
Feces/Stool No Salmonella, Shigella, Aeromonas or Plesiomonas species
isolated.
Campylobacter Culture - Final
No Campylobacter species isolated.
Shiga Toxin Test - Final
No E. coli Shiga Toxin 1 or 2 detected.
10/01/24 17:48 Blood Culture - Preliminary
Blood/Venous Staphylococcus intermedius
Enterococcus species
Gram Stain - Preliminary
10/02/24 12:07 Blood Culture - Preliminary
Blood/Venous Positive culture in progress
Gram Stain - Preliminary
10/02/24 11:43 Blood Culture - Preliminary
Blood/Venous Positive culture in progress
Gram Stain - Preliminary
10/03/24 10:37 C. difficile GDH Antigen & Toxins - Final
Feces/Stool Negative for toxigenic C.difficile
10/02/24 01:18 MRSA Screen - Final
Nose No Methicillin Resistant Staphylococcus aureus isolated.
Therapeutic Drug Monitoring
Random Vancomycin 10.8 ug/ml 10/04/24 06:39
[2024-10-05] MEDS: TYLENOL 650 MG PO (10:19)
--- NOTE | 2024-10-05 11:28 | W.PN.CARDCBS ---
Today's Communication / Plan
-
Resume Norvasc and lisinopril with hypertension noted renal insufficiency has resolved
Consider eventually resume chlorthalidone
For BRIAN on Friday 10/06
Impression / Plan
-
PCP: Dr. Hanley
Geospatial Developer: Dr. GEORGE Edmond
Impression:
Presented with chills, n/v/d
Bacteremia
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
Post-op paroxysmal atrial fibrillation
HTN
HLD
DM2
PAD s/p L great toe amputation
Echo 10/09/2022: EF 50-55%, mod cLVH, mild MS with peak/mean gradients 8/3 mmHg, bioprosthetic AVR w/ peak/mean gradients 24/15 mmHg, mild TR, estimated PAP 38 mmHg
Echo 10/04/2024: Ejection fraction 50 to 55%, status post bioprosthetic AVR with mean gradient of 19 mmHg
Plan:
Discussed with patient and in detail.
Will plan for BRIAN on Friday 10/06
Discussed with infectious disease as well
Hypertensive at present. Chlorthalidone and lisinopril were on hold on admission due to renal insufficiency which has resolved
Will resume lisinopril and amlodipine. Consider resume chlorthalidone prior to discharge
HPI: Nav is a 74 year old male with PMH of bicuspid aortic valve s/p AVR in 2019, HTN, HLD, DM2, and PAD. He presented to the ER for evaluation of nausea, vomiting, and chills. Symptoms had been ongoing for the past 2 weeks while traveling, and
upon returning home a few days ago felt worse, prompting ER evaluation. In ER, he was found to have possible RML pneumonia and bacteremia. Admitted for further workup and management. ID consulted and he continues on vancomycin. Repeat blood cultures
were still positive on 10/02. Given h/o bioprosthetic AVR, cardiology consulted to consider BRIAN. Patient reports no chest pain, cough, or SOB at this time.
Progress Note - Geospatial Developer
Subjective
Date of Service: October 05, 2024
No complaints
Objective
Labs:
10/05/24 07:49
10/05/24 07:49
Labs
Hgb 12.6 g/dL (13.0-18.0) L 10/05/24 07:49
Hct 35.7 % (39.0-52.0) L 10/05/24 07:49
Plt Count 151 10^3/uL (130-400) D 10/05/24 07:49
Sodium 133 mmol/L (135-145) L 10/05/24 07:49
Potassium 3.7 mmol/L (3.5-5.1) 10/05/24 07:49
BUN 17 mg/dl (9-20) 10/05/24 07:49
Creatinine 0.9 mg/dL (0.7-1.3) 10/05/24 07:49
Glucose 178 mg/dl (70-99) H 10/05/24 07:49
Vital Signs and I&O:
Vital Signs
Temp Pulse Resp BP Pulse Ox
98.9 F 70 18 153/85 97
10/05/24 07:55 10/05/24 07:55 10/05/24 07:55 10/05/24 07:55 10/05/24 07:55
Vital Signs
Temp Pulse Resp BP Pulse Ox
98.9 F 70 18 153/85 97
10/05/24 07:55 10/05/24 07:55 10/05/24 07:55 10/05/24 07:55 10/05/24 07:55
Intake & Output
10/03/24 10/04/24 10/05/24 10/06/24
06:59 06:59 06:59 06:59
Intake Total 3320 / 3320 600 / 600 1570 / 1570
Output Total 1875 / 1875 1000 / 1000 1350 / 1350
Balance 1445 / 1445 -400 / -400 220 / 220
Physical Exam
Physical Exam
General: Well developed, well nourished in NAD.
Neck: Supple, no JVD, HJR, carotids +2 B/L, no bruits bilaterally.
Heart: Non displaced PMI, RRR, 1/6 basal systolic murmur, No S3, S4, no rubs.
Lungs: Clear to auscultation bilaterally, no wheeze, rhonchi, rubs bilaterally,
normal expiratory phase.
Extremities: No clubbing, cyanosis or edema bilaterally.
Neuro: Grossly nonfocal, awake, alert and oriented x3.
--- NOTE | 2024-10-05 11:55 | W.PN.HOSP.TC ---
Today's Communication/Plan
-
await susceptibility results
IV antibiotics per ID
BRIAN in the morning
Restart BP meds
Assessment / Plan
Assessment / Plan
74yo M with PMHx of s/p bioprosthetic valve @2020, DM, HLD, HTN, PAD, neuropathy sent by his doctor due to ill appearing look due to 1 week of chills and few weekls of nausea, vomiting and diarrhea. Managed for possible RML pneumonia and found
bacteremia
A/P:
#RML CAP
#bacteremia with coag neg staph
With Hx of bioprosthetic valve
ID consult
legionella and S.pneumonia urinary Ag neg
Sputum Cx
Vanco continue. Cefepime stopped
CT chest without persuasive CAP signs
Bcx with staph intermedius and enterococcus
repeat Bcx from 10/04 neg so far
TTE noted
Plan for BRIAN in am
Probably will require PICC w/prolonged course of abx
Cards eval -follows w/Dr. Edmodn as OP
#left foot ulcer
-Follows Dr. Smith- s/p bedside excision debridement
-xray negative for OM.
-OOB in surgical shoe only
#Chills, nausea, vomiting, diarrhea
r/o c.diff
CT abd/pelvis unremarkable
Zofran as needed
UA neg for UTI
check Bcx
blood parasite neg
Lyme pending
No metabolic acidosis on labs
resolved.
#minimally elevated AST
CPK minimally elevated
Hepatitis panel
follow LFT
#asymptomatic cholelithiasis
#AMRIK with mild hyponatremia
Cr baseline 0.9
resolved on IVF
#DM type 2 with neuropathy
cont basal insulin reduced dose
Accuchecks, Insulin SS, DM diet
on Gabapentin
a1c at 6.4
#Essential HTN
Restarted lisinopril and norvasc
Cholrothalidone on hold
#AMRIK likely pre-renal
-resolved
#HLD
#PAD
cont meds
Lightheadedness
-resolved
DVT ppx hep
Full code
Anticipated Discharge: 24 - 48 hours
Subjective/Interval History
-
Date of Service: October 05, 2024
denies dizziness
Objective Data
-
Labs:
Laboratory Results
10/05/24
07:49
WBC 8.2
Hgb 12.6 L
Hct 35.7 L
Plt Count 151 D
Sodium 133 L
Potassium 3.7
Chloride 98
Carbon Dioxide 26
BUN 17
Creatinine 0.9
Glucose 178 H
Calcium 8.8
Vital Signs:
Vital Signs
Temp Pulse Resp BP Pulse Ox
98.9 F 70 18 153/85 97
10/05/24 07:55 10/05/24 07:55 10/05/24 07:55 10/05/24 07:55 10/05/24 07:55
I&O
10/04/24 10/05/24 10/06/24
06:59 06:59 06:59
Intake Total 600 / 600 1570 / 1570
Output Total 1000 / 1000 1350 / 1350
Balance -400 / -400 220 / 220
Physical Exam
-
General: Well Nourished, No Apparent Distress and Comfortable
Respiratory: Clear to Auscultation
Cardiac: Regular Rhythm and S1/S2; Negative Murmur
GI: Soft, Nontender and Nondistended
Neuro: Awake, Alert, Oriented, AO x 3 and No Motor Deficits; Negative Slurred Speech or Facial Droop
Psych: Calm
[2024-10-05 12:40] LABS: Glucose - Point of Care 263 mg/dl (70-99)
[2024-10-05] MEDS: ZESTRIL 40 MG PO (12:40)
[2024-10-05] MEDS: NOVOLOG FLEXPEN-MODERATE RESISTANCE 5 UNITS SC (12:40)
[2024-10-05] MEDS: NORVASC 5 MG PO (12:40)
--- NOTE | 2024-10-05 13:38 | CM ---
Met with patient to discuss discharge plan; explained that PT recommended home PT; patient reported that he does not want home PT services
--- NOTE | 2024-10-05 13:45 | W.PN.ID1 ---
Date of Service
Date of Service: October 05, 2024
Today's Communication
Continue antibiotics.
Assessment / Plan
Bacteremia with coag negative staph (high-grade)
Leukocytosis
Fever/chills
Diarrhea
[facility] ([facility])
HTN
DM with neuropathy/retinopathy
HLD
PAD
Valvulopathy (aortic stenosis)
Ambulatory dysfunction
Recommendations:
Blood cultures with Staphylococcus intermedius, along with Enterococcus faecalis. Blood cultures from 10/02 are now also positive.
Continue empiric vancomycin. Follow Vanco levels to prevent nephrotoxicity.
Follow repeat blood cultures to assess clearance.
Echocardiogram (TTE) does not reveal vegetation. For BRIAN tomorrow.
Further recommendations as additional data is returned.
����������������������������������������������������������
Chief Complaint
-: Leukocytosis and Bacteremia
Subjective / Review of Systems
Review of Systems: No Fever and No Chills
Vital Signs / Physical Exam
Vital Signs
Vital Signs
Temp Pulse Resp BP Pulse Ox
98.9 F 75 18 128/73 97
10/05/24 07:55 10/05/24 12:40 10/05/24 07:55 10/05/24 12:40 10/05/24 07:55
Physical Exam
Constitutional: No Acute Distress, Comfortable and Non-toxic
Eyes: Sclera Anicteric
Cardiovascular: S1/S2; Negative S3/S4 or Murmur
Pulmonary: Non Labored
Gastrointestinal: Soft, Non Tender and Non Distended
Extremities: Negative Edema, Cyanosis, Erythema, Splinter Hemorrhage or Janeway Lesions
Skin: Warm and Dry; Negative Rash or Jaundice
Neurological: Awake and Alert
Psychological: Calm
Objective Data
Lab Data
Lab Results
10/05/24 07:49
10/05/24 07:49
ESR 29 mm/hour (0-20) H 10/05/24 07:49
Estimated Creat Clear 85 ml/min 10/05/24 07:49
Lactic Acid Cancelled 10/01/24 20:45
Total Bilirubin 0.6 mg/dl (0.2-1.3) 10/04/24 06:39
AST 25 U/L (17-59) 10/04/24 06:39
ALT 33 U/L (0-50) 10/04/24 06:39
Alkaline Phosphatase 80 U/L (38-126) 10/04/24 06:39
C-Reactive Protein 56.60 mg/L (0.0-10.00) H 10/05/24 07:49
Most recent labs reviewed.
Micro Results:
10/01/24 16:47 Blood Culture - Final
Blood/Venous Staphylococcus intermedius
Enterococcus faecalis
Gram Stain - Final
10/02/24 12:07 Blood Culture - Preliminary
Blood/Venous Staphylococcus intermedius
Enterococcus faecalis
Gram Stain - Preliminary
10/02/24 11:43 Blood Culture - Preliminary
Blood/Venous Staphylococcus intermedius
Enterococcus faecalis
Gram Stain - Preliminary
10/01/24 17:48 Blood Culture - Final
Blood/Venous Staphylococcus intermedius
Enterococcus faecalis
Gram Stain - Final
10/04/24 11:08 Blood Culture - Preliminary
Blood/Venous No Growth in 24 hours- Final report to follow
10/04/24 10:37 Blood Culture - Preliminary
Blood/Venous No Growth in 24 hours- Final report to follow
10/03/24 10:38 Salmonella/Shigella Culture - Final
Feces/Stool No Salmonella, Shigella, Aeromonas or Plesiomonas species
isolated.
Campylobacter Culture - Final
No Campylobacter species isolated.
Shiga Toxin Test - Final
No E. coli Shiga Toxin 1 or 2 detected.
10/03/24 10:37 C. difficile GDH Antigen & Toxins - Final
Feces/Stool Negative for toxigenic C.difficile
10/02/24 01:18 MRSA Screen - Final
Nose No Methicillin Resistant Staphylococcus aureus isolated.
10/02/24 07:21 Blood Parasites Smear - Final
Blood/Venous
10/02/24 10:05 Legionella Urinary Antigen - Final
Urine Negative for Legionella pneumophila Serogroup 1 antigen.
A negative result does not rule out the possiblity of
Legionella infection due to other serogroups or species of
Legionella. Clinical correlation is recommended.
Streptococcus pneumoniae Antigen (M - Final
Negative for Streptococcus pneumoniae antigen.
A negative result does not exclude infection with
Streptococcus pneumoniae. Clinical correlation is
recommended.
10/01/24 17:48 Influenza Types A & B (MARIA M) - Final
Nasal Swab Negative for Influenza A & B, NAAT
Negative results must be combined with clinical observations
and patient history.
Nucleic Acid Amplification test (NAAT)performed on the
[employer] platform.
Blood Culture Final 10/01/24
Staphylococcus intermedius
Enterococcus faecalis
1. Staphylococcus intermedius
M.I.C. RX
--------- ---
Amoxicillin/Potas. Clavulanate <=4/2 R
Ampicillin <=2 R
Clindamycin <=0.5 S
Daptomycin <=0.5 S
Gentamicin <=4 S
Erythromycin <=0.5 S
Levofloxacin <=1 S
Oxacillin >2 R
Tetracycline >8 R
Trimethoprim/Sulfamethoxazole >2/38 R
Vancomycin 1 S
2. Enterococcus faecalis
M.I.C. RX
--------- ---
Ampicillin <=2 S
Daptomycin 1 S
Gentamicin Synergy Screen <=500 S
Vancomycin 1 S
Imaging:
10/02/24 CT chest/abdomen/pelvis without contrast: Mild subsegmental atelectasis in bilateral lung bases. No focal consolidation. Multiple noncalcified gallstones are noted in the gallbladder lumen. No appreciable gallbladder wall thickening or
pericholecystic fluid. Bilateral kidneys are within normal limits. No hydronephrosis or nephrolithiasis noted. No bowel wall thickening, obstruction or inflammation noted. Urinary bladder is unremarkable. Please see full dictation for
additional detail..
Care Review
Plan reviewed with: Physician (Hospitalist; Cardiology)
[2024-10-05 15:26] VITALS: BP 123/65
[2024-10-05] MEDS: HEPARIN SC ×2 (15:45→23:49)
[2024-10-05 16:31] LABS: Glucose - Point of Care 229 mg/dl (70-99)
[2024-10-05] MEDS: NOVOLOG FLEXPEN-MODERATE RESISTANCE 3 UNITS SC (17:04)
[2024-10-05] MEDS: BYSTOLIC 10 MG PO (21:42)
[2024-10-05] MEDS: ASPIR LOW (ENTERIC COATED) 81 MG PO (21:42)
[2024-10-05] MEDS: ZETIA 10 MG PO (21:42)
[2024-10-05] MEDS: LANTUS 0.12 UNITS SC (21:50)
[2024-10-05 21:58] LABS: Glucose - Point of Care 182 mg/dl (70-99)
[2024-10-05 23:17] VITALS: BP 138/68
[2024-10-06] MEDS: VANCOCIN 200 IV (05:26)
[2024-10-06 05:47] LABS: Glucose - Point of Care 226 mg/dl (70-99)
[2024-10-06 07:48] VITALS: BP 152/76
[2024-10-06] MEDS: LIPITOR 20 MG PO (07:51)
[2024-10-06] MEDS: NEURONTIN 300 MG PO ×3 (07:51→21:40)
[2024-10-06] MEDS: ZESTRIL 40 MG PO (07:52)
[2024-10-06] MEDS: NORVASC 5 MG PO (07:52)
[2024-10-06 08:26] LABS: % Basophils 0.6 % (0-2); % Eosinophils 2.1 % (0-6); % Immature Granulocytes 0.8 % (0-0.5); % Lymphocytes 15.9 % (20.5-51.1); % Monocytes 8.5 % (1.7-9.3); % Neutrophils 72.1 % (42.2-75.2); Absolute Basophils 0.1 10^3/uL (0-0.2); Absolute Eosinophils 0.2 10^3/uL (0-0.7); Absolute Immature Granulocytes 0.1 10^3/uL (0-0.05); Absolute Lymphocytes 1.4 10^3/uL (1.2-3.4); Absolute Monocytes 0.8 10^3/uL (0.1-0.6); Absolute Neutrophils 6.5 10^3/uL (1.4-6.5); Hematocrit 34.2 % (39.0-52.0); Hemoglobin 12.3 g/dL (13.0-18.0); Mean Corpuscular Hgb 31.8 pg (27.0-31.0); Mean Corpuscular Volume 88.4 fL (80.0-94.0); Mean Platelet Volume 10.5 fL (7.4-10.4); Nucleated Red Blood Cells % 0 % (-); Platelet Count 167 10^3/uL (130-400); Red Blood Cell Count 3.87 10^6/uL (4.70-6.10); Red Cell Dist. Width 12.6 % (11.5-14.5)
[2024-10-06 08:52] LABS: Blood Urea Nitrogen 18 mg/dl (9-20); Calcium 8.8 mg/dl (8.4-10.2); Carbon Dioxide 24 mmol/L (22-30); Chloride 99 mmol/L (98-107); Estimated Creatinine Clearance 85 ml/min; Glucose 233 mg/dl (70-99); Potassium 3.7 mmol/L (3.5-5.1); Sodium 133 mmol/L (135-145); eGFR > 60.00
[2024-10-06] MEDS: HEPARIN SC ×3 (09:02→23:23)
--- NOTE | 2024-10-06 09:49 | W.PN.CARDCBS ---
Today's Communication / Plan
-
BRIAN negative for vegetation
Antibiotics per infectious disease
Restart chlorthalidone and sign off.
Impression / Plan
-
PCP: Dr. Hanley
Stope Miner: Dr. GEORGE Edmond
Impression:
Presented with chills, n/v/d
Bacteremia
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
Post-op paroxysmal atrial fibrillation
HTN
HLD
DM2
PAD s/p L great toe amputation
Echo 10/09/2022: EF 50-55%, mod cLVH, mild MS with peak/mean gradients 8/3 mmHg, bioprosthetic AVR w/ peak/mean gradients 24/15 mmHg, mild TR, estimated PAP 38 mmHg
Echo 10/04/2024: Ejection fraction 50 to 55%, status post bioprosthetic AVR with mean gradient of 19 mmHg
BRIAN 10/06/2024: No vegetation seen
Plan:
BRIAN negative for vegetation
Plan for treatment of sepsis per infectious disease
He remains hypertensive and will resume chlorthalidone
Continue lisinopril and amlodipine
Discussed with patient and at bedside as well as primary service
Will sign off, call with questions
HPI: Nav is a 74 year old male with PMH of bicuspid aortic valve s/p AVR in 2019, HTN, HLD, DM2, and PAD. He presented to the ER for evaluation of nausea, vomiting, and chills. Symptoms had been ongoing for the past 2 weeks while traveling, and
upon returning home a few days ago felt worse, prompting ER evaluation. In ER, he was found to have possible RML pneumonia and bacteremia. Admitted for further workup and management. ID consulted and he continues on vancomycin. Repeat blood cultures
were still positive on 10/02. Given h/o bioprosthetic AVR, cardiology consulted to consider BRIAN. Patient reports no chest pain, cough, or SOB at this time.
Progress Note - Stope [facility]er
Subjective
Date of Service: October 06, 2024
No chest pain or shortness of breath
Objective
Labs:
10/06/24 08:04
10/06/24 08:04
Labs
Hgb 12.3 g/dL (13.0-18.0) L 10/06/24 08:04
Hct 34.2 % (39.0-52.0) L 10/06/24 08:04
Plt Count 167 10^3/uL (130-400) 10/06/24 08:04
Sodium 133 mmol/L (135-145) L 10/06/24 08:04
Potassium 3.7 mmol/L (3.5-5.1) 10/06/24 08:04
BUN 18 mg/dl (9-20) 10/06/24 08:04
Creatinine 0.9 mg/dL (0.7-1.3) 10/06/24 08:04
Glucose 233 mg/dl (70-99) H 10/06/24 08:04
Vital Signs and I&O:
Vital Signs
Temp Pulse Resp BP Pulse Ox
98.6 F 72 18 152/76 97
10/06/24 07:48 10/06/24 07:48 10/06/24 07:48 10/06/24 07:48 10/06/24 07:48
Vital Signs
Temp Pulse Resp BP Pulse Ox
98.6 F 72 18 152/76 97
10/06/24 07:48 10/06/24 07:48 10/06/24 07:48 10/06/24 07:48 10/06/24 07:48
Intake & Output
10/04/24 10/05/24 10/06/24 10/07/24
06:59 06:59 06:59 06:59
Intake Total 600 / 600 1570 / 1570 1260 / 1260
Output Total 1000 / 1000 1350 / 1350 1750 / 1750
Balance -400 / -400 220 / 220 -490 / -490
Physical Exam
Physical Exam
General: Well developed, well nourished in NAD.
Neck: Supple, no JVD, HJR, carotids +2 B/L, no bruits bilaterally.
Heart: Non displaced PMI, RRR, no murmurs, No S3, S4, no rubs.
Lungs: Clear to auscultation bilaterally, no wheeze, rhonchi, rubs bilaterally,
normal expiratory phase.
Extremities: No clubbing, cyanosis or edema bilaterally.
Neuro: Grossly nonfocal, awake, alert and oriented x3.
--- NOTE | 2024-10-06 10:23 | PHA.VAN.FU ---
Vancomycin Assessment / Plan
- Assessment
Renal Function: Stable (0.9)
WBC's are: WNL (9.0)
In the past 24 hrs, patient has been: Afebrile
- Dosing Plan
Continue: Vanco 1G Q12H
- Monitoring Plan
Peak Level: 10/06/24 2100
Trough Level: 10/07/24 0530
- Follow Up
Pharmacy will continue to follow.
Vancomycin Follow UP
- -
Patient Age: 74
Patient Sex: Male
Vancomycin Day #: 4
Indication: Bacteremia
Requesting Provider: Dr. Gautam
Pertinent Antimicrobial Allergies:
pcns=mild rash from zosyn
Height / Weight:
Height 6 ft 3 in
Actual Weight 92.397 kg
IBW in k.5
- Vital Signs / Lab Results
Temp Pulse Resp BP Pulse Ox
98.6 F 72 18 152/76 97
10/06/24 07:48 10/06/24 07:48 10/06/24 07:48 10/06/24 07:48 10/06/24 07:48
Lab Results - Hematology
10/04/24 10/05/24 10/06/24
06:39 07:49 08:04
WBC 7.5 8.2 9.0
Lab Results - Chemistry
10/04/24 10/05/24 10/06/24
06:39 07:49 08:04
BUN 18 17 18
Creatinine 1.0 0.9 0.9
Estimated Creat Clear 76 85 85
Albumin 3.1 L
Microbiology Results
10/01/24 16:47 Blood Culture - Final
Blood/Venous Staphylococcus intermedius
Enterococcus faecalis
Gram Stain - Final
10/02/24 12:07 Blood Culture - Preliminary
Blood/Venous Staphylococcus intermedius
Enterococcus faecalis
Gram Stain - Preliminary
10/02/24 11:43 Blood Culture - Preliminary
Blood/Venous Staphylococcus intermedius
Enterococcus faecalis
Gram Stain - Preliminary
10/01/24 17:48 Blood Culture - Final
Blood/Venous Staphylococcus intermedius
Enterococcus faecalis
Gram Stain - Final
10/04/24 11:08 Blood Culture - Preliminary
Blood/Venous No Growth in 24 hours- Final report to follow
10/04/24 10:37 Blood Culture - Preliminary
Blood/Venous No Growth in 24 hours- Final report to follow
10/03/24 10:38 Salmonella/Shigella Culture - Final
Feces/Stool No Salmonella, Shigella, Aeromonas or Plesiomonas species
isolated.
Campylobacter Culture - Final
No Campylobacter species isolated.
Shiga Toxin Test - Final
No E. coli Shiga Toxin 1 or 2 detected.
Therapeutic Drug Monitoring
Random Vancomycin 10.8 ug/ml 10/04/24 06:39
[2024-10-06] MEDS: NOVOLOG FLEXPEN SC (10:34)
[2024-10-06] MEDS: NOVOLOG FLEXPEN-MODERATE RESISTANCE SC (10:34)
[2024-10-06 10:35] VITALS: BP 110/75
--- NOTE | 2024-10-06 10:35 | PTCARENOTE ---
Received pt back from [facility], VSS, pt stood from stretcher to bed with assistance of this RN and no assistive devices. No new orders at this time.
[2024-10-06 10:37] LABS: Glucose - Point of Care 233 mg/dl (70-99)
[2024-10-06] MEDS: Hygroton 25 MG PO (11:17)
[2024-10-06] MEDS: NOVOLOG FLEXPEN 8 UNITS SC ×2 (11:19→16:50)
[2024-10-06] MEDS: NOVOLOG FLEXPEN-MODERATE RESISTANCE 3 UNITS SC (11:21)
--- NOTE | 2024-10-06 11:27 | W.PN.HOSP.TC ---
Today's Communication/Plan
-
Awaiting ID recs for antibiotics
Restart home blood pressure medication
Monitor blood pressure
Assessment / Plan
Assessment / Plan
74yo M with PMHx of s/p bioprosthetic valve @2019, DM, HLD, HTN, PAD, neuropathy sent by his doctor due to ill appearing look due to 1 week of chills and few weekls of nausea, vomiting and diarrhea. Managed for possible RML pneumonia and found
bacteremia
A/P:
#RML CAP
#bacteremia with coag neg staph
With Hx of bioprosthetic valve
ID consult
legionella and S.pneumonia urinary Ag neg
Sputum Cx
Continue vancomycin. Pharmacy managed. Cefepime stopped
CT chest without persuasive CAP signs
Bcx with staph intermedius and enterococcus and susceptibility noted.
repeat Bcx from 10/04 neg so far
TTE noted
Status post BRIAN with no vegetation or abscess.
Probably will require PICC w/prolonged course of abx
Cards eval -follows w/Dr. Edmond as OP
#left foot ulcer
-Follows Dr. Smith- s/p bedside excision debridement
-xray negative for OM.
-OOB in surgical shoe only
#Chills, nausea, vomiting, diarrhea
r/o c.diff
CT abd/pelvis unremarkable
Zofran as needed
UA neg for UTI
check Bcx
blood parasite neg
Lyme pending
No metabolic acidosis on labs
resolved.
#minimally elevated AST
CPK minimally elevated
Hepatitis panel
follow LFT
#asymptomatic cholelithiasis
#AMRIK with mild hyponatremia
Cr baseline 0.9
resolved on IVF
#DM type 2 with neuropathy
cont basal insulin reduced dose
Accuchecks, Insulin SS, DM diet
on Gabapentin
a1c at 6.4
#Essential HTN
Restarted lisinopril and norvasc and chlorthalidone per cardiology.
Monitor blood pressure.
#AMRIK likely pre-renal
-resolved
#HLD
#PAD
cont meds
Lightheadedness
-resolved
DVT ppx hep
Full code
Disposition Home on discharge
Anticipated Discharge: Within 24 hours
Subjective/Interval History
-
Date of Service: October 06, 2024
seen post EGD
eager to get discharged
remains afebrile
Objective Data
-
Labs:
Laboratory Results
10/06/24
08:04
WBC 9.0
Hgb 12.3 L
Hct 34.2 L
Plt Count 167
Sodium 133 L
Potassium 3.7
Chloride 99
Carbon Dioxide 24
BUN 18
Creatinine 0.9
Glucose 233 H
Calcium 8.8
Vital Signs:
Vital Signs
Temp Pulse Resp BP Pulse Ox
98.1 F 99 17 110/75 97
10/06/24 10:35 10/06/24 11:17 10/06/24 10:35 10/06/24 11:17 10/06/24 10:45
I&O
10/05/24 10/06/24 10/07/24
06:59 06:59 06:59
Intake Total 1570 / 1570 1260 / 1260
Output Total 1350 / 1350 1750 / 1750
Balance 220 / 220 -490 / -490
Physical Exam
-
General: Well Nourished, No Apparent Distress and Comfortable
Respiratory: Clear to Auscultation
Cardiac: Regular Rhythm and S1/S2; Negative Murmur
GI: Soft, Nontender and Nondistended
Musculoskeletal: No Edema
Neuro: Awake, Alert, Oriented, AO x 3 and No Motor Deficits; Negative Slurred Speech or Facial Droop
Psych: Calm
--- NOTE | 2024-10-06 11:55 | W.PN.ID1 ---
Date of Service
Date of Service: October 06, 2024
Today's Communication
Continue antibiotics. See below�
Assessment / Plan
Bacteremia with Staphylococcus intermedius and Enterococcus faecalis. (10/01 & 10/02)
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
Leukocytosis
Fever/chills
Diarrhea
Hx AVR (2019; [facility]; bovine)
HTN
DM with neuropathy/retinopathy
HLD
PAD
Valvulopathy (aortic stenosis)
Ambulatory dysfunction
Recommendations:
Blood cultures 10/01 & 10/02 with Staphylococcus intermedius and Enterococcus faecalis.
Susceptibilities reviewed.
TTE and BRIAN negative for noted vegetation. ESR and CRP elevated.
Given the overall risk to his bioprosthetic aortic valve, will treat as if this is a prosthetic valve endocarditis.
There is no unifying single antibiotic here that will treat both isolates, but based upon susceptibilities, will transition to daptomycin 1 g IV every 24 hours, along with ceftriaxone 2 gm IV q12 which will cover the Enterococcus. Additionally,
rifampin which will cover the Staphylococcus intermedius.
Abx to continue through 11/15/2024
Follow repeat blood cultures to assess clearance. Once cultures negative x [address] PICC line.
Will place home infusion sheet on paper chart.
Weekly CMP / CBC / ESR / ERP / CPK (while on dapto) / LFT's (while on ceftriaxone/rifampin)
����������������������������������������������������������
Chief Complaint
-: Leukocytosis and Bacteremia
Subjective / Review of Systems
Review of Systems: No Fever and No Chills
Vital Signs / Physical Exam
Vital Signs
Vital Signs
Temp Pulse Resp BP Pulse Ox
98.1 F 99 17 110/75 97
10/06/24 10:35 10/06/24 11:17 10/06/24 10:35 10/06/24 11:17 10/06/24 10:45
Physical Exam
Constitutional: No Acute Distress, Comfortable and Non-toxic
Eyes: Sclera Anicteric
Cardiovascular: S1/S2; Negative S3/S4 or Murmur
Pulmonary: Non Labored
Gastrointestinal: Soft, Non Tender and Non Distended
Extremities: Negative Edema, Cyanosis, Erythema, Splinter Hemorrhage or Janeway Lesions
Skin: Warm and Dry; Negative Rash or Jaundice
Neurological: Awake and Alert
Psychological: Calm
Objective Data
Lab Data
Lab Results
10/06/24 08:04
10/06/24 08:04
ESR 29 mm/hour (0-20) H 10/05/24 07:49
Estimated Creat Clear 85 ml/min 10/06/24 08:04
Lactic Acid Cancelled 10/01/24 20:45
Total Bilirubin 0.6 mg/dl (0.2-1.3) 10/04/24 06:39
AST 25 U/L (17-59) 10/04/24 06:39
ALT 33 U/L (0-50) 10/04/24 06:39
Alkaline Phosphatase 80 U/L (38-126) 10/04/24 06:39
C-Reactive Protein 56.60 mg/L (0.0-10.00) H 10/05/24 07:49
Most recent labs reviewed.
Micro Results:
10/04/24 11:08 Blood Culture - Preliminary
Blood/Venous No Growth in 48 hours- Final report to follow
10/04/24 10:37 Blood Culture - Preliminary
Blood/Venous No Growth in 48 hours- Final report to follow
10/01/24 16:47 Blood Culture - Final
Blood/Venous Staphylococcus intermedius
Enterococcus faecalis
Gram Stain - Final
10/02/24 12:07 Blood Culture - Preliminary
Blood/Venous Staphylococcus intermedius
Enterococcus faecalis
Gram Stain - Preliminary
10/02/24 11:43 Blood Culture - Preliminary
Blood/Venous Staphylococcus intermedius
Enterococcus faecalis
Gram Stain - Preliminary
10/01/24 17:48 Blood Culture - Final
Blood/Venous Staphylococcus intermedius
Enterococcus faecalis
Gram Stain - Final
10/03/24 10:38 Salmonella/Shigella Culture - Final
Feces/Stool No Salmonella, Shigella, Aeromonas or Plesiomonas species
isolated.
Campylobacter Culture - Final
No Campylobacter species isolated.
Shiga Toxin Test - Final
No E. coli Shiga Toxin 1 or 2 detected.
10/03/24 10:37 C. difficile GDH Antigen & Toxins - Final
Feces/Stool Negative for toxigenic C.difficile
10/02/24 01:18 MRSA Screen - Final
Nose No Methicillin Resistant Staphylococcus aureus isolated.
10/02/24 07:21 Blood Parasites Smear - Final
Blood/Venous
10/02/24 10:05 Legionella Urinary Antigen - Final
Urine Negative for Legionella pneumophila Serogroup 1 antigen.
A negative result does not rule out the possiblity of
Legionella infection due to other serogroups or species of
Legionella. Clinical correlation is recommended.
Streptococcus pneumoniae Antigen (M - Final
Negative for Streptococcus pneumoniae antigen.
A negative result does not exclude infection with
Streptococcus pneumoniae. Clinical correlation is
recommended.
10/01/24 17:48 Influenza Types A & B (MARIA M) - Final
Nasal Swab Negative for Influenza A & B, NAAT
Negative results must be combined with clinical observations
and patient history.
Nucleic Acid Amplification test (NAAT)performed on the
[employer] platform.
Blood Culture Final 10/01/24
Staphylococcus intermedius
Enterococcus faecalis
1. Staphylococcus intermedius
M.I.C. RX
--------- ---
Amoxicillin/Potas. Clavulanate <=4/2 R
Ampicillin <=2 R
Clindamycin <=0.5 S
Daptomycin <=0.5 S
Gentamicin <=4 S
Erythromycin <=0.5 S
Levofloxacin <=1 S
Oxacillin >2 R
Tetracycline >8 R
Trimethoprim/Sulfamethoxazole >2/38 R
Vancomycin 1 S
2. Enterococcus faecalis
M.I.C. RX
--------- ---
Ampicillin <=2 S
Daptomycin 1 S
Gentamicin Synergy Screen <=500 S
Vancomycin 1 S
Imaging:
10/02/24 CT chest/abdomen/pelvis without contrast: Mild subsegmental atelectasis in bilateral lung bases. No focal consolidation. Multiple noncalcified gallstones are noted in the gallbladder lumen. No appreciable gallbladder wall thickening or
pericholecystic fluid. Bilateral kidneys are within normal limits. No hydronephrosis or nephrolithiasis noted. No bowel wall thickening, obstruction or inflammation noted. Urinary bladder is unremarkable. Please see full dictation for
additional detail..
[2024-10-06] MEDS: CUBICIN 20 MG IV (13:27)
[2024-10-06] MEDS: STERILE WATER FOR INJECTION 20 ML IV (15:12)
[2024-10-06] MEDS: ROCEPHIN 2000 MG IV (15:12)
[2024-10-06 16:00] VITALS: BP 117/61
--- NOTE | 2024-10-06 16:25 | CM ---
Chart reviewed and plan is to home with spouse when stable, no needs, patient has declined home services at discharge.
Plan; Home with spouse no needs when stable.
[2024-10-06 16:51] LABS: Glucose - Point of Care 300 mg/dl (70-99)
[2024-10-06] MEDS: NOVOLOG FLEXPEN-MODERATE RESISTANCE 7 UNITS SC (16:51)
[2024-10-06 21:33] LABS: Glucose - Point of Care 219 mg/dl (70-99)
[2024-10-06] MEDS: LANTUS 0.22 UNITS SC (21:39)
[2024-10-06] MEDS: ZETIA 10 MG PO (21:40)
[2024-10-06] MEDS: BYSTOLIC 10 MG PO (21:40)
[2024-10-06] MEDS: ASPIR LOW (ENTERIC COATED) 81 MG PO (21:43)
[2024-10-06] MEDS: ANESTHETIC LOZENGE 1 LOZENGE PO (22:28)
[2024-10-07] MEDS: STERILE WATER FOR INJECTION 20 ML IV ×2 (01:20→13:16)
[2024-10-07] MEDS: ROCEPHIN 2000 MG IV ×2 (01:20→13:16)
[2024-10-07 06:40] LABS: Blood Urea Nitrogen 18 mg/dl (9-20); Calcium 8.8 mg/dl (8.4-10.2); Carbon Dioxide 28 mmol/L (22-30); Chloride 99 mmol/L (98-107); Estimated Creatinine Clearance 76 ml/min; Glucose 214 mg/dl (70-99); Potassium 4.1 mmol/L (3.5-5.1); Sodium 135 mmol/L (135-145); eGFR > 60.00
[2024-10-07 07:03] LABS: % Basophils 0.5 % (0-2); % Eosinophils 1.9 % (0-6); % Immature Granulocytes 1.2 % (0-0.5); % Lymphocytes 16.6 % (20.5-51.1); % Monocytes 8.9 % (1.7-9.3); % Neutrophils 70.9 % (42.2-75.2); Absolute Basophils 0.1 10^3/uL (0-0.2); Absolute Eosinophils 0.2 10^3/uL (0-0.7); Absolute Immature Granulocytes 0.1 10^3/uL (0-0.05); Absolute Lymphocytes 1.7 10^3/uL (1.2-3.4); Absolute Monocytes 0.9 10^3/uL (0.1-0.6); Absolute Neutrophils 7.4 10^3/uL (1.4-6.5); Hemoglobin 11.4 g/dL (13.0-18.0); Mean Corp Hgb Conc. 35.6 g/dL (33.0-37.0); Mean Corpuscular Hgb 31.8 pg (27.0-31.0); Mean Corpuscular Volume 89.1 fL (80.0-94.0); Mean Platelet Volume 10.5 fL (7.4-10.4); Nucleated Red Blood Cells % 0 % (-); Platelet Count 203 10^3/uL (130-400); Red Blood Cell Count 3.59 10^6/uL (4.70-6.10); Red Cell Dist. Width 12.5 % (11.5-14.5); White Blood Cell Count 10.5 10^3/uL (4.8-10.8)
[2024-10-07 07:40] VITALS: BP 138/67
[2024-10-07] MEDS: NORVASC 5 MG PO (07:50)
[2024-10-07] MEDS: Hygroton 25 MG PO (07:50)
[2024-10-07] MEDS: NEURONTIN 300 MG PO ×3 (07:50→21:39)
[2024-10-07] MEDS: ZESTRIL 40 MG PO (07:50)
[2024-10-07] MEDS: NOVOLOG FLEXPEN 8 UNITS SC ×3 (07:53→16:53)
[2024-10-07 07:54] LABS: Glucose - Point of Care 225 mg/dl (70-99)
[2024-10-07] MEDS: NOVOLOG FLEXPEN-MODERATE RESISTANCE 3 UNITS SC ×2 (07:54→16:53)
[2024-10-07] MEDS: HEPARIN SC (07:57)
[2024-10-07 11:37] LABS: Glucose - Point of Care 263 mg/dl (70-99)
--- NOTE | 2024-10-07 11:42 | W.PN.HOSP.TC ---
Today's Communication/Plan
-
? PICC line
IV antibiotics
Await disposition planning per case management
Assessment / Plan
Assessment / Plan
74yo M with PMHx of s/p bioprosthetic valve @2020, DM, HLD, HTN, PAD, neuropathy sent by his doctor due to ill appearing look due to 1 week of chills and few weekls of nausea, vomiting and diarrhea. Managed for possible RML pneumonia and found
bacteremia
A/P:
# RML CAP
# Bacteremia with staph intermedius and Enterococcus faecalis
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
legionella and S.pneumonia urinary Ag neg
Cefepime and vancomycin discontinued
CT chest without persuasive CAP signs
Bcx with staph intermedius and enterococcus and susceptibility noted.
TTE noted
Status post BRIAN with no vegetation or abscess.
By infectious disease patient will require multiple antibiotics which include daptomycin, ceftriaxone. Rifampin will be ordered by infectious disease.
Cards eval -follows w/Dr. Edmond as OP
Blood culture surveillance and negative x [address] PICC line
Case management aware for IV antibiotics.
#left foot ulcer
-Follows Dr. Smith- s/p bedside excision debridement
-xray negative for OM.
-OOB in surgical shoe only
#Chills, nausea, vomiting, diarrhea
r/o c.diff
CT abd/pelvis unremarkable
Zofran as needed
UA neg for UTI
check Bcx
blood parasite neg
Lyme pending
No metabolic acidosis on labs
resolved.
#minimally elevated AST
CPK minimally elevated
Hepatitis panel
follow LFT
#asymptomatic cholelithiasis
#AMRIK with mild hyponatremia
Cr baseline 0.9
resolved on IVF
#DM type 2 with neuropathy
cont basal insulin reduced dose
Accuchecks, Insulin SS, DM diet
on Gabapentin
a1c at 6.4
#Essential HTN
Restarted lisinopril and norvasc and chlorthalidone per cardiology.
Monitor blood pressure. 138/67
#AMRIK likely pre-renal
-resolved
#HLD
#PAD
cont meds
Lightheadedness
-resolved
DVT ppx hep
Full code
Disposition -case management aware of IV antibiotics. May require SNF for IV antibiotics.
Discussed with patient and spouse at bedside in detail
Anticipated Discharge: 24 - 48 hours
Subjective/Interval History
-
Date of Service: October 07, 2024
Denies any foot pain
Remains afebrile
Objective Data
-
Labs:
Laboratory Results
10/07/24
05:12
WBC 10.5
Hgb 11.4 L
Hct 32.0 L
Plt Count 203 D
Sodium 135
Potassium 4.1
Chloride 99
Carbon Dioxide 28
BUN 18
Creatinine 1.0
Glucose 214 H
Calcium 8.8
Vital Signs:
Vital Signs
Temp Pulse Resp BP Pulse Ox
99.3 F 75 16 138/67 96
10/07/24 07:40 10/07/24 07:40 10/07/24 07:40 10/07/24 07:40 10/07/24 07:40
I&O
10/06/24 10/07/24 10/08/24
06:59 06:59 06:59
Intake Total 1260 / 1260 600 / 600 480 / 480
Output Total 1750 / 1750 550 / 550 500 / 500
Balance -490 / -490 50 / 50 -20 / -20
Physical Exam
-
General: Well Nourished, No Apparent Distress and Comfortable
Respiratory: Clear to Auscultation
Cardiac: Regular Rhythm and S1/S2; Negative Murmur
GI: Soft, Nontender and Nondistended
Musculoskeletal: No Edema
Neuro: Awake, Alert, Oriented, AO x 3 and No Motor Deficits; Negative Slurred Speech or Facial Droop
Psych: Calm
--- NOTE | 2024-10-07 12:23 | CM ---
Reviewed the chart notes and spoke with the patient and his spouse at the bedside. Reviewed IV abx ordered. Patient prefers home. Clinicals and script faxed to [facility]. Referral for [facility] placed in [facility]. CM continues to be
available to patient/family and is monitoring medical plan for needs at discharge.
Plan: Discharge to home with [facility] for IV abx and [facility] for PICC and lab draws.
[2024-10-07] MEDS: NOVOLOG FLEXPEN-MODERATE RESISTANCE 5 UNITS SC (12:44)
[2024-10-07] MEDS: CUBICIN 20 MG IV (13:16)
[2024-10-07 15:25] VITALS: BP 145/72
--- NOTE | 2024-10-07 15:45 | W.PN.ID1 ---
Date of Service
Date of Service: October 07, 2024
Today's Communication
Continue antibiotics.
Assessment / Plan
Bacteremia with Staphylococcus intermedius and Enterococcus faecalis. (10/01 & 10/02)
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
Leukocytosis
Fever/chills
Diarrhea
[facility]x [facility] (2019; [facility]; bovine)
HTN
DM with neuropathy/retinopathy
HLD
PAD
Valvulopathy (aortic stenosis)
Ambulatory dysfunction
Recommendations:
Blood cultures 10/01 & 10/02 with Staphylococcus intermedius and Enterococcus faecalis.
Susceptibilities reviewed.
TTE and BRIAN negative for noted vegetation. ESR and CRP elevated.
Given the overall risk to his bioprosthetic aortic valve, will treat as if this is a prosthetic valve endocarditis.
There is no unifying single antibiotic here that will treat both isolates, but based upon susceptibilities, will transition to daptomycin 1 g IV every 24 hours, along with ceftriaxone 2 gm IV q12 which will cover the Enterococcus. Additionally,
rifampin which will cover the Staphylococcus intermedius.
Abx to continue through 11/15/2024
Cultures negative x 72 hours; can place PICC line.
Home infusion sheet given to case management.
Weekly CMP / CBC / ESR / ERP / CPK (while on dapto) / LFT's (while on ceftriaxone/rifampin)
����������������������������������������������������������
Chief Complaint
-: Leukocytosis and Bacteremia
Subjective / Review of Systems
Review of Systems: No Fever and No Chills
Vital Signs / Physical Exam
Vital Signs
Vital Signs
Temp Pulse Resp BP Pulse Ox
99.3 F 75 16 138/67 96
10/07/24 07:40 10/07/24 07:40 10/07/24 07:40 10/07/24 07:40 10/07/24 07:40
Physical Exam
Constitutional: No Acute Distress, Comfortable and Non-toxic
Eyes: Sclera Anicteric
Cardiovascular: S1/S2; Negative S3/S4
Pulmonary: Non Labored
Gastrointestinal: Soft and Non Tender
Neurological: Awake and Alert
Psychological: Calm
Objective Data
Lab Data
Lab Results
10/07/24 05:12
10/07/24 05:12
ESR 29 mm/hour (0-20) H 10/05/24 07:49
Estimated Creat Clear 76 ml/min 10/07/24 05:12
Lactic Acid Cancelled 10/01/24 20:45
Total Bilirubin 0.6 mg/dl (0.2-1.3) 10/04/24 06:39
AST 25 U/L (17-59) 10/04/24 06:39
ALT 33 U/L (0-50) 10/04/24 06:39
Alkaline Phosphatase 80 U/L (38-126) 10/04/24 06:39
C-Reactive Protein 56.60 mg/L (0.0-10.00) H 10/05/24 07:49
Most recent labs reviewed.
Micro Results:
10/04/24 11:08 Blood Culture - Preliminary
Blood/Venous No Growth in 72 hours- Final report to follow
10/04/24 10:37 Blood Culture - Preliminary
Blood/Venous No Growth in 72 hours- Final report to follow
10/01/24 16:47 Blood Culture - Final
Blood/Venous Staphylococcus intermedius
Enterococcus faecalis
Gram Stain - Final
10/02/24 12:07 Blood Culture - Preliminary
Blood/Venous Staphylococcus intermedius
Enterococcus faecalis
Gram Stain - Preliminary
10/02/24 11:43 Blood Culture - Preliminary
Blood/Venous Staphylococcus intermedius
Enterococcus faecalis
Gram Stain - Preliminary
10/01/24 17:48 Blood Culture - Final
Blood/Venous Staphylococcus intermedius
Enterococcus faecalis
Gram Stain - Final
10/03/24 10:38 Salmonella/Shigella Culture - Final
Feces/Stool No Salmonella, Shigella, Aeromonas or Plesiomonas species
isolated.
Campylobacter Culture - Final
No Campylobacter species isolated.
Shiga Toxin Test - Final
No E. coli Shiga Toxin 1 or 2 detected.
10/03/24 10:37 C. difficile GDH Antigen & Toxins - Final
Feces/Stool Negative for toxigenic C.difficile
10/02/24 01:18 MRSA Screen - Final
Nose No Methicillin Resistant Staphylococcus aureus isolated.
10/02/24 07:21 Blood Parasites Smear - Final
Blood/Venous
10/02/24 10:05 Legionella Urinary Antigen - Final
Urine Negative for Legionella pneumophila Serogroup 1 antigen.
A negative result does not rule out the possiblity of
Legionella infection due to other serogroups or species of
Legionella. Clinical correlation is recommended.
Streptococcus pneumoniae Antigen (M - Final
Negative for Streptococcus pneumoniae antigen.
A negative result does not exclude infection with
Streptococcus pneumoniae. Clinical correlation is
recommended.
10/01/24 17:48 Influenza Types A & B (MARIA M) - Final
Nasal Swab Negative for Influenza A & B, NAAT
Negative results must be combined with clinical observations
and patient history.
Nucleic Acid Amplification test (NAAT)performed on the
[employer] platform.
Blood Culture Final 10/01/24
Staphylococcus intermedius
Enterococcus faecalis
1. Staphylococcus intermedius
M.I.C. RX
--------- ---
Amoxicillin/Potas. Clavulanate <=4/2 R
Ampicillin <=2 R
Clindamycin <=0.5 S
Daptomycin <=0.5 S
Gentamicin <=4 S
Erythromycin <=0.5 S
Levofloxacin <=1 S
Oxacillin >2 R
Tetracycline >8 R
Trimethoprim/Sulfamethoxazole > R
Vancomycin 1 S
2. Enterococcus faecalis
M.I.C. RX
--------- ---
Ampicillin <=2 S
Daptomycin 1 S
Gentamicin Synergy Screen <=500 S
Vancomycin 1 S
Imaging:
10/02/24 CT chest/abdomen/pelvis without contrast: Mild subsegmental atelectasis in bilateral lung bases. No focal consolidation. Multiple noncalcified gallstones are noted in the gallbladder lumen. No appreciable gallbladder wall thickening or
pericholecystic fluid. Bilateral kidneys are within normal limits. No hydronephrosis or nephrolithiasis noted. No bowel wall thickening, obstruction or inflammation noted. Urinary bladder is unremarkable. Please see full dictation for
additional detail..
--- NOTE | 2024-10-07 16:00 | PTCARENOTE ---
Patient and patients having questions on discharge date and time. Patient and educated on process of getting home IV medication authorized. Patient upset by the information provided to him and told this rn to 'stop talking.' CM and ID MD
aware. They educated patient on process of IV medication as well.
[2024-10-07 16:53] LABS: Glucose - Point of Care 238 mg/dl (70-99)
[2024-10-07] MEDS: RIFADIN 300 MG PO (20:27)
[2024-10-07 21:37] LABS: Glucose - Point of Care 117 mg/dl (70-99)
[2024-10-07] MEDS: LANTUS 0.22 UNITS SC (21:39)
[2024-10-07] MEDS: ASPIR LOW (ENTERIC COATED) 81 MG PO (21:39)
[2024-10-07] MEDS: BYSTOLIC 10 MG PO (21:39)
[2024-10-07] MEDS: ZETIA 10 MG PO (21:39)
[2024-10-07 23:33] VITALS: BP 130/68
[2024-10-08] MEDS: ROCEPHIN 2000 MG IV ×2 (01:26→13:16)
[2024-10-08] MEDS: STERILE WATER FOR INJECTION 20 ML IV ×2 (01:26→13:16)
--- NOTE | 2024-10-08 05:24 | VATNOTE ---
0515-UPON ENTERING ROOM TO DRAW ORDERED LABS FROM PICC LINE, PT SCREAMED FOR THIS RN TO 'GET THE HELL OF OF HERE'. I ATTEMPTED TO EXPLAIN TO PT HOW I WAS ABLE TO OBTAIN HIS LABS FROM HIS PICC LINE W/O A NEEDLE STICK AND PT AGAIN SCREAMED FOR ME 'GET
THE HELL OUT'. PCN AWARE OF PT BEHAVIOR AND REFUSAL TO HAVE LABS DRAWN.
[2024-10-08 07:35] VITALS: BP 138/70
[2024-10-08 08:33] LABS: Glucose - Point of Care 205 mg/dl (70-99)
[2024-10-08] MEDS: Hygroton 25 MG PO (08:51)
[2024-10-08] MEDS: RIFADIN 300 MG PO (08:51)
[2024-10-08] MEDS: NEURONTIN 300 MG PO (08:53)
[2024-10-08] MEDS: ZESTRIL 40 MG PO (08:53)
[2024-10-08] MEDS: NOVOLOG FLEXPEN 8 UNITS SC ×2 (08:53→12:12)
[2024-10-08] MEDS: NORVASC 5 MG PO (08:53)
[2024-10-08] MEDS: NOVOLOG FLEXPEN-MODERATE RESISTANCE 3 UNITS SC (08:54)
--- NOTE | 2024-10-08 09:34 | PTOTSP ---
Reviewed chart and s/w RN who reports pt is ambulating independently and refusing everything and has stated he does not need PT. Anticipates being dc'd home today. PT will sign off.
--- NOTE | 2024-10-08 10:43 | CM ---
Addendum entered by Radha Pino RN 10/08/24 13:39:
Catie from [facility] in to instruct the patient on IV abx administration. Patient's spouse provided with medical release form for patient to be able to retrieve a copy of his medical records from this stay.
Addendum entered by Radha Pino RN 10/08/24 11:54:
IMM reviewed. Since spouse is familiar with IV abx in the past, patient will discharge to home today.
Hugo
Original Note:
Reviewed the chart notes and spoke with the patient and spouse at the bedside. Provided cost for IV abx and supplies through [facility]. Per [facility] [employer] Community Liaison Catie, the weekly cost are as follows:
Daptomycin $607
Rocephin $354
Supplies $210
Provided patient with information regarding applying for M3P program through his prescription carrier which would be able to establish a payment plan for the medication. Patient and spouse not interested. Patient agreeable to cost. Catie will be
out today to education patient and spouse on administering the medication. Hugo MCKEON will be available tomorrow for additional teaching in the home. Per Catie, start of service will be Friday. Catie's information provided to the patient. Left
voice message for Catie regarding patient's agreeing to cost of medication/supplies. continues to be available to patient/family and is monitoring medical plan for needs at discharge.
Plan: Discharge to home with IV abx through [facility] and [facility] for PICC line management and blood draws.
--- NOTE | 2024-10-08 11:31 | W.PN.HOSP.TC ---
Today's Communication/Plan
-
ID to facilitate/expedite Dc today -appreciate help
IV/PO abx combo
s/p Picc line
Assessment / Plan
Assessment / Plan
74yo M with PMHx of s/p bioprosthetic valve @2020, DM, HLD, HTN, PAD, neuropathy sent by his doctor due to ill appearing look due to 1 week of chills and few weekls of nausea, vomiting and diarrhea. Managed for possible RML pneumonia and found
bacteremia
A/P:
# RML CAP
# Bacteremia with staph intermedius and Enterococcus faecalis
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
legionella and S.pneumonia urinary Ag neg
Cefepime and vancomycin discontinued
CT chest without persuasive CAP signs
Bcx with staph intermedius and enterococcus and susceptibility noted.
TTE noted
Status post BRIAN with no vegetation or abscess.
By infectious disease patient will require multiple antibiotics which include daptomycin, ceftriaxone. Rifampin 300 mg q12h will be ordered by infectious disease.
Cards eval -follows w/Dr. Edmond as OP
Blood culture surveillance and negative x [address] PICC line
Case management aware for IV antibiotics.
#left foot ulcer
-Follows Dr. Smith- s/p bedside excision debridement
-xray negative for OM.
-OOB in surgical shoe only
#Chills, nausea, vomiting, diarrhea
r/o c.diff
CT abd/pelvis unremarkable
Zofran as needed
UA neg for UTI
check Bcx
blood parasite neg
Lyme pending
No metabolic acidosis on labs
resolved.
#minimally elevated AST
CPK minimally elevated
Hepatitis panel
follow LFT
#asymptomatic cholelithiasis
#AMRIK with mild hyponatremia
Cr baseline 0.9
resolved on IVF
#DM type 2 with neuropathy
cont basal insulin reduced dose
Accuchecks, Insulin SS, DM diet
on Gabapentin
a1c at 6.4
#Essential HTN
Restarted lisinopril and norvasc and chlorthalidone per cardiology.
Monitor blood pressure. 138/67
#AMRIK likely pre-renal
-resolved
#HLD
#PAD
cont meds
Lightheadedness
-resolved
DVT ppx hep
Full code
Disposition -case management and infectious disease
Discussed with patient and spouse at bedside in detail
More than 30 minutes spent in discharge including
Final examination of the patient
Summarizing hospital stay
Instructions for continuing care to all relevant caregivers
Preparation of discharge records, prescriptions, and referral forms
Total time spent (in minutes): 52
Anticipated Discharge: Today
Subjective/Interval History
-
Date of Service: October 08, 2024
Received PICC line yesterday
Patient eager to get discharged
States he is willing to pay for medication
Objective Data
-
Labs:
Laboratory Results
10/08/24
06:00
WBC Pending
Hgb Pending
Hct Pending
Plt Count Pending
Sodium Pending
Potassium Pending
Chloride Pending
Carbon Dioxide Pending
BUN Pending
Creatinine Pending
Glucose Pending
Calcium Pending
AST Pending
ALT Pending
Vital Signs:
Vital Signs
Temp Pulse Resp BP Pulse Ox
98.7 F 79 18 138/70 95
10/08/24 07:35 10/08/24 08:51 10/08/24 07:35 10/08/24 08:51 10/08/24 08:37
I&O
10/07/24 10/08/24 10/09/24
06:59 06:59 06:59
Intake Total 600 / 600 1959 / 1959
Output Total 550 / 550 900 / 900
Balance 50 / 50 1060 / 1060
--- NOTE | 2024-10-08 11:34 | W.DCSUMMARY ---
Discharge Summary
Discharge Data
Date of Admission: 10/01/24
Date of Discharge: 10/08/24
-
Pending Results: No
Hospital Course
74yo M with PMHx of s/p bioprosthetic valve @2019, DM, HLD, HTN, PAD, neuropathy sent by his doctor due to ill appearing look due to 1 week of chills and few weekls of nausea, vomiting and diarrhea. Patient underwent CT of the chest without any
focal infiltrates. Eventually patient blood culture found to be positive. Blood cultures were found to become positive. Patient was on IV vancomycin and cefepime. Cefepime was discontinued by infectious disease. Cardiology and podiatry also
consulted. Patient underwent transthoracic echocardiogram which was negative for vegetation. Cardiology did BRIAN which was also negative for vegetation or abscess. Patient surveillance cultures finally was found to be negative this time 72 hours
and PICC line was placed. Patient also had nausea vomiting and chills on admission. CT abdomen pelvis was unremarkable. Patient symptomology of chills and nausea have resolved. Patient was tolerating diet. Also had AMRIK which resolved. Patient
was also complaining of left foot ulcer and was evaluated by his primary billboard poster and underwent bedside excisional debridement. Patient was restarted on his home blood pressure regimen. Creatinine was at baseline and gabapentin dose was adjusted
to home dose. Patient patient blood culture susceptibility results per infectious disease patient was started on daptomycin, ceftriaxone and rifampin. Statin medication will be held while on daptomycin. Patient received PICC line. Patient will
be discharged home with IV antibiotics till 11/15/2024.
Discharge Plan
-
Patient Disposition: Home with Home Care
Discharge Diagnosis/Procedures: #Fever, chills, diarrhea
# Bacteremia with staph intermedius and Enterococcus faecalis
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
#left foot ulcer s/p bedside excision debridement
#asymptomatic cholelithiasis
#AMRIK with mild hyponatremia
Condition: Fair
Diet: Diabetic, Carb Controlled
Activity: As tolerated
Driving Restrictions: As prior to admission
Activity Restrictions/Additional Instructions:
Weekly CMP / CBC / ESR / ERP / CPK (while on dapto)
Weekly Liver function testing (while on ceftriaxone/rifampin)
Labs faxed to Dr. Jean office
Referrals:
Gabe Hanley MD [Family Provider] - in less than 1 week
Additional Discharge Medication Instructions: IV daptomycin, ceftriaxone and rifampin to continue through 11/15/2024
Prescriptions:
New
ceftriaxone 2 gram Recon Soln
2,000 mg IV Q12H Qty: 38 0RF
DAPTOmycin [Cubicin] 1000 MG
Syringe [Syringe-Pump] 0 ML
As Directed mls/hr IV Q24H
Ordered By: Tomas George MD
Last Taken: 10/08/24 12:09 20 mls
rifampin 300 mg Capsule
300 mg PO Q12 Qty: 76 0RF
Continued
gabapentin 600 MG tablet
600 mg PO TID
amlodipine 5 MG tablet
5 mg PO DAILY
aspirin 81 MG tablet,delayed release (DR/EC)
81 mg PO HS
nebivolol 10 MG tablet
10 mg PO HS
insulin glargine [Lantus Solostar U-100 Insulin] 300 UNITS/3 ML insulin pen
22 units SC HS Qty: 1 1RF
cyclobenzaprine 10 mg Tablet
10 mg PO DAILYPRN PRN (Reason: muscle spasms)
therapeutic multivitamin Tablet
1 tab PO DAILY
chlorthalidone 25 mg Tablet
25 mg PO DAILY
vitamin B complex Tablet
1 tab PO DAILY
lisinopril 40 mg Tablet
40 mg PO DAILY
ezetimibe 10 mg Tablet
10 mg PO HS
dapagliflozin propanediol [Farxiga] 10 mg Tablet
10 mg PO MOWEFR
Ozempic 0.25 mg or 0.5 mg (2 mg/3 mL) Pen Injector
0.25 mg SC BELLO
Rx Instructions:
for 4 weeks
insulin aspart U-100 [Novolog FlexPen U-100 Insulin] 300 UNITS/3 ML insulin pen
8 units SC AC
Held
atorvastatin 20 MG tablet
20 mg PO MOWEFR
Hold Instructions: Resume on 11/15/24. Hold while on IV abx
Discharge Orders:
Discharge Patient (As Directed); Ordered 10/08/24
Ordered By: Tomas George
Discharge Date and Time
Print Language: IRANIAN
[2024-10-08 11:44] LABS: Glucose - Point of Care 162 mg/dl (70-99)
[2024-10-08] MEDS: CUBICIN 20 MG IV (12:09)
[2024-10-08] MEDS: NOVOLOG FLEXPEN-MODERATE RESISTANCE 1 UNITS SC (12:13)
--- NOTE | 2024-10-08 12:30 | W.PN.ID1 ---
Date of Service
Date of Service: October 08, 2024
Today's Communication
Continue abx.
Assessment / Plan
Bacteremia with Staphylococcus intermedius and Enterococcus faecalis. (10/01 & 10/02)
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
Leukocytosis
Fever/chills
Diarrhea
[facility]
HTN
DM with neuropathy/retinopathy
HLD
PAD
Valvulopathy (aortic stenosis)
Ambulatory dysfunction
Recommendations:
Blood cultures 10/01 & 10/02 with Staphylococcus intermedius and Enterococcus faecalis.
Susceptibilities reviewed.
TTE and BRIAN negative for noted vegetation. ESR and CRP elevated.
Given the overall risk to his bioprosthetic aortic valve, will treat as if this is a prosthetic valve endocarditis.
There is no unifying single antibiotic here that will treat both isolates, but based upon susceptibilities, daptomycin 1 g IV every 24 hours, along with ceftriaxone 2 gm IV q12 which will cover the Enterococcus. Additionally, rifampin which will
cover the Staphylococcus intermedius.
Abx to continue through 11/15/2024
Weekly CMP / CBC / ESR / ERP / CPK (while on dapto) / LFT's (while on ceftriaxone/rifampin)
����������������������������������������������������������
Chief Complaint
-: Leukocytosis and Bacteremia
Subjective / Review of Systems
Review of Systems: No Fever, No Chills and No Chest Pain
Vital Signs / Physical Exam
Vital Signs
Vital Signs
Temp Pulse Resp BP Pulse Ox
98.7 F 79 18 138/70 95
10/08/24 07:35 10/08/24 08:51 10/08/24 07:35 10/08/24 08:51 10/08/24 11:32
Physical Exam
Constitutional: No Acute Distress, Comfortable and Non-toxic
Eyes: Sclera Anicteric
Pulmonary: Non Labored
Gastrointestinal: Soft and Non Distended
Skin: Negative Rash or Jaundice
Neurological: Awake and Alert
Psychological: Calm
Lines: PICC
Objective Data
Lab Data
ESR 29 mm/hour (0-20) H 10/05/24 07:49
Estimated Creat Clear 76 ml/min 10/07/24 05:12
Lactic Acid Cancelled 10/01/24 20:45
Total Bilirubin 0.6 mg/dl (0.2-1.3) 10/04/24 06:39
AST 25 U/L (17-59) 10/04/24 06:39
ALT 33 U/L (0-50) 10/04/24 06:39
Alkaline Phosphatase 80 U/L (38-126) 10/04/24 06:39
C-Reactive Protein 56.60 mg/L (0.0-10.00) H 10/05/24 07:49
Most recent labs reviewed.
Micro Results:
10/04/24 11:08 Blood Culture - Preliminary
Blood/Venous No Growth in 4 days- Final report to follow
10/04/24 10:37 Blood Culture - Preliminary
Blood/Venous No Growth in 4 days- Final report to follow
10/01/24 16:47 Blood Culture - Final
Blood/Venous Staphylococcus intermedius
Enterococcus faecalis
Gram Stain - Final
10/02/24 12:07 Blood Culture - Preliminary
Blood/Venous Staphylococcus intermedius
Enterococcus faecalis
Gram Stain - Preliminary
10/02/24 11:43 Blood Culture - Preliminary
Blood/Venous Staphylococcus intermedius
Enterococcus faecalis
Gram Stain - Preliminary
10/01/24 17:48 Blood Culture - Final
Blood/Venous Staphylococcus intermedius
Enterococcus faecalis
Gram Stain - Final
10/03/24 10:38 Salmonella/Shigella Culture - Final
Feces/Stool No Salmonella, Shigella, Aeromonas or Plesiomonas species
isolated.
Campylobacter Culture - Final
No Campylobacter species isolated.
Shiga Toxin Test - Final
No E. coli Shiga Toxin 1 or 2 detected.
10/03/24 10:37 C. difficile GDH Antigen & Toxins - Final
Feces/Stool Negative for toxigenic C.difficile
10/02/24 01:18 MRSA Screen - Final
Nose No Methicillin Resistant Staphylococcus aureus isolated.
10/02/24 07:21 Blood Parasites Smear - Final
Blood/Venous
10/02/24 10:05 Legionella Urinary Antigen - Final
Urine Negative for Legionella pneumophila Serogroup 1 antigen.
A negative result does not rule out the possiblity of
Legionella infection due to other serogroups or species of
Legionella. Clinical correlation is recommended.
Streptococcus pneumoniae Antigen (M - Final
Negative for Streptococcus pneumoniae antigen.
A negative result does not exclude infection with
Streptococcus pneumoniae. Clinical correlation is
recommended.
10/01/24 17:48 Influenza Types A & B (MARIA M) - Final
Nasal Swab Negative for Influenza A & B, NAAT
Negative results must be combined with clinical observations
and patient history.
Nucleic Acid Amplification test (NAAT)performed on the
[employer] platform.
Blood Culture Final 10/01/24
Staphylococcus intermedius
Enterococcus faecalis
1. Staphylococcus intermedius
M.I.C. RX
--------- ---
Amoxicillin/Potas. Clavulanate <=4/2 R
Ampicillin <=2 R
Clindamycin <=0.5 S
Daptomycin <=0.5 S
Gentamicin <=4 S
Erythromycin <=0.5 S
Levofloxacin <=1 S
Oxacillin >2 R
Tetracycline >8 R
Trimethoprim/Sulfamethoxazole >/38 R
Vancomycin 1 S
2. Enterococcus faecalis
M.I.C. RX
--------- ---
Ampicillin <=2 S
Daptomycin 1 S
Gentamicin Synergy Screen <=500 S
Vancomycin 1 S
Imaging:
10/02/24 CT chest/abdomen/pelvis without contrast: Mild subsegmental atelectasis in bilateral lung bases. No focal consolidation. Multiple noncalcified gallstones are noted in the gallbladder lumen. No appreciable gallbladder wall thickening or
pericholecystic fluid. Bilateral kidneys are within normal limits. No hydronephrosis or nephrolithiasis noted. No bowel wall thickening, obstruction or inflammation noted. Urinary bladder is unremarkable. Please see full dictation for
additional detail..
[2024-10-08 12:45] VITALS: BP 133/87
== END 2024-10-08 14:43 | disposition home health service (06) | DRG 264 ==
LOC: 2 NORTH 22:27
PROVIDERS: Internal Medicine; Internal Medicine Cardiovascular Disease; ADMITTING PHYSICIAN Hospitalist; ATTENDING PHYSICIAN Hospitalist; CONSULT PHYSICIAN Internal Medicine Cardiovascular Disease; CONSULT PHYSICIAN Internal Medicine Infectious Disease; EMERGENCY PHYSICIAN Emergency Medicine; FAMILY PHYSICIAN Family Medicine; OTHER PHYSICIAN Podiatrist Foot & Ankle Surgery
PROC: 0JBR0ZZ Excision of Left Foot Subcutaneous Tissue and Fascia, Open Approach (ICD-10-PCS; 2024-10-05)
PROC: B24BZZ4 Ultrasonography of Heart with Aorta, Transesophageal (ICD-10-PCS; 2024-10-06)
DX: T82.6XXA Infection and inflammatory reaction due to cardiac valve prosthesis, initial encounter (principal); I33.0 Acute and subacute infective endocarditis; J18.9 Pneumonia, unspecified organism; E87.1 Hypo-osmolality and hyponatremia; N17.9 Acute kidney failure, unspecified; R78.81 Bacteremia; J98.11 Atelectasis; Z11.52 Encounter for screening for COVID-19; K52.9 Noninfective gastroenteritis and colitis, unspecified; I10 Essential (primary) hypertension; I25.10 Atherosclerotic heart disease of native coronary artery without angina pectoris; I48.0 Paroxysmal atrial fibrillation; E11.42 Type 2 diabetes mellitus with diabetic polyneuropathy; E11.621 Type 2 diabetes mellitus with foot ulcer; E11.319 Type 2 diabetes mellitus with unspecified diabetic retinopathy without macular edema; E78.00 Pure hypercholesterolemia, unspecified; K80.20 Calculus of gallbladder without cholecystitis without obstruction; L97.522 Non-pressure chronic ulcer of other part of left foot with fat layer exposed; Y83.1 Surgical operation with implant of artificial internal device as the cause of abnormal reaction of the patient, or of later complication, without mention of misadventure at the time of the procedure
CPT/HCPCS: 71045; 71046; 71250; 73630; 74176; 80048; 80053; 80202; 81003; 81015; 82248; 82550; 82962; 83036; 83605; 83735; 84145; 84443; 85025; 85027; 85652; 86140; 86618; 86704; 86706; 86803; 87015; 87040; 87045; 87046; 87070; 87077; 87147; 87186; 87205; 87207; 87324; 87340; 87427; 87449; 87502; 87811; 87899; 93005; 93306; 93312; 93320; 93325; 96361; 96374; 96375; 97162; 97530; 99285; J0878

== ENCOUNTER → 2024-11-03 13:34 | Outpatient (REF) | payer MEDICARE, OTHER, SELFPAY | LOC: DHVS 13:34 | PROVIDERS: ATTENDING PHYSICIAN Surgery Vascular Surgery; FAMILY PHYSICIAN Family Medicine | DX: I73.9 Peripheral vascular disease, unspecified (principal) | CPT/HCPCS: 93922 ==

== ENCOUNTER → 2025-01-05 07:34 | Outpatient (REF) | payer MEDICARE, OTHER, SELFPAY ==
[2025-01-05 08:28] LABS: Hematocrit 43.5 % (39.0-52.0); Hemoglobin 14.1 g/dL (13.0-18.0); Mean Corp Hgb Conc. 32.4 g/dL (33.0-37.0); Mean Corpuscular Volume 90.2 fL (80.0-94.0); Nucleated Red Blood Cells % 0 % (-); Platelet Count 258 10^3/uL (130-400); Red Cell Dist. Width 14.6 % (11.5-14.5)
[2025-01-05 12:05] LABS: ALT (SGPT) 15 U/L (0-50); AST (SGOT) 21 U/L (17-59); Albumin 4.6 g/dl (3.5-5.0); Alkaline Phosphatase 47 U/L (38-126); Blood Urea Nitrogen 21 mg/dl (9-20); Calcium 9.7 mg/dl (8.4-10.2); Carbon Dioxide 28 mmol/L (22-30); Chloride 105 mmol/L (98-107); Glucose 105 mg/dl (70-99); HDL Cholesterol 81 mg/dl; LDL Cholesterol, Calculated 99 mg/dl; Potassium 5.1 mmol/L (3.5-5.1); Sodium 138 mmol/L (135-145); Total Protein 7.2 g/dl (6.3-8.2); Very Low Density Lipoprotein 13 mg/dl (0-30); eGFR > 60.00
== END ==
LOC: REG 07:34
PROVIDERS: ATTENDING PHYSICIAN Internal Medicine Cardiovascular Disease; FAMILY PHYSICIAN Family Medicine
DX: E78.00 Pure hypercholesterolemia, unspecified (principal); Z95.3 Presence of xenogenic heart valve
CPT/HCPCS: 36415; 80053; 80061; 85025; 87040; 87205

== ENCOUNTER → 2025-01-21 16:04 | Outpatient (REF) | payer MEDICARE, OTHER, SELFPAY | LOC: RCS 16:04 | PROVIDERS: ATTENDING PHYSICIAN Internal Medicine Cardiovascular Disease; FAMILY PHYSICIAN Family Medicine | DX: I45.2 Bifascicular block (principal) | CPT/HCPCS: 93306 ==